=== PATIENT | female | born 1950 | race Caucasian/White ===

== ENCOUNTER 2018-07-01 08:51 | Day surgery (SDC) | payer OTHER, MEDICARE ==
[2018-06-27 12:03] VITALS: BMI 18.8
[2018-07-01] MEDS ORDERED: PROPOFOL 20 ML ONE ×2 (09:10)
[2018-07-01] MEDS ORDERED: LIDOCAINE HCL/PF 2% SDV 5ML VIAL ONE (09:10)
[2018-07-01 10:37] VITALS: PULSE 62; TEMP 97.9
[2018-07-01 10:54] VITALS: BP 124/48
== END 2018-07-01 11:10 | disposition home or self-care (01) ==
LOC: FASU-ENDO 08:51
PROVIDERS: ATTEND Internal Medicine Gastroenterology
PROC: 0D728ZZ Dilation of Middle Esophagus, Via Natural or Artificial Opening Endoscopic (ICD-10-PCS; 2018-07-01)
PROC: 0D728ZZ Dilation of Middle Esophagus, Via Natural or Artificial Opening Endoscopic (ICD-10-PCS; principal; 2018-07-01 09:43)
DX: K22.2 Esophageal obstruction (principal); K44.9 Diaphragmatic hernia without obstruction or gangrene

== ENCOUNTER 2018-08-21 07:47 | Day surgery (SDC) | payer OTHER, MEDICARE ==
[2018-08-14 11:16] VITALS: BMI 18.8
[2018-08-21] MEDS ORDERED: PROPOFOL 20 ML ONE ×2 (07:53)
[2018-08-21] MEDS ORDERED: LIDOCAINE HCL/PF 2% SDV 5ML VIAL ONE (07:54)
[2018-08-21 08:00] VITALS: TEMP 98.1
[2018-08-21 10:41] VITALS: BP 112/60; PULSE 89
== END 2018-08-21 10:40 | disposition home or self-care (01) ==
LOC: FASU-ENDO 07:47
PROVIDERS: ATTEND Internal Medicine Gastroenterology
PROC: 0D728ZZ Dilation of Middle Esophagus, Via Natural or Artificial Opening Endoscopic (ICD-10-PCS; principal; 2018-08-21 09:34)
DX: K22.2 Esophageal obstruction (principal); R13.10 Dysphagia, unspecified

== ENCOUNTER 2018-10-08 12:25 | Inpatient (IN) | payer OTHER, MEDICARE ==
--- NOTE | 2018-10-08 12:28 | PDOC ---
History of Present Illness - General Chief Complaint: Weakness Stated Complaint: WEAK Time Seen by Provider: 10/08/18 12:27 History Source: Patient, Family (Daughter present for interview), Old Records Exam Limitations: No Limitations - History of Present Illness Initial Comments: 68 y/o female presenting to ER via private auto complaining of generalized weakness. Pt initially stated it began last Sunday (02 Oct 2018) after undergoing an outpatient abdominal ultrasound. Pt then decided symptoms had perhaps been ongoing for a little while. Endorses occasional chills and decreased PO intake. Pt was diagnosed with pancreatic cancer last year. Was unable to undergo Whipple procedure after cholecystic perforation. A pacemaker was placed after pt developed a heart block while hospitalized with secondary septic infection. Recent CT scan revealed metastasis to liver. Pt is not undergoing chemo or radiation therapy. Pts daughter, present at bedside, expressed extreme frustration at the lack of understanding of plan of care for her mother. Pt was referred to an oncologist but has been unable to make an appointment. Presented to ER today with hope of better understanding what to do next. PCP: Dr. Jc Jacobs Loss Prevention Auditor: Dr. Jack Colindres Shredded Filler Cigar Maker Machine: Dr. Frederick Malloy Medical Hx: - Pancreatic cancer with metastasis to liver - Pacemaker placed for heart block Surgical Hx: - Cholecystic Tube Placement Past History - Past Medical History Allergies/Adverse Reactions: Allergies Allergy/AdvReac Type Severity Reaction Status Date / Time acetaminophen [From Tylenol] Allergy Intermediate Rash Verified 10/08/18 12:32 latex Allergy Intermediate Rash Verified 10/08/18 12:32 Home Medications: Ambulatory Orders Lactobacillus Combination No.4 [Probiotic] 1 each PO BID 05/22/18 Ranitidine HCl [Zantac] 150 mg PO BID 07/01/18 Anemia: No Asthma: No Cancer: No Cardiac Disorders: Yes (BRADYCARDIA) CVA: No COPD: No CHF: No Dementia: No Diabetes: No GI Disorders: Yes (DYSPHAGIA) Disorders: No HTN: No Hypercholesterolemia: No Liver Disease: No Seizures: No Thyroid Disease: No - Surgical History Abdominal Surgery: Yes Appendectomy: No Cardiac Surgery: No Cholecystectomy: Yes (PT HAD RUPTURED GALLBLADDER AND WAS HOSPITALIZED X 3 MOS LAST YEAR) Lung Surgery: No Neurologic Surgery: No Orthopedic Surgery: No - Suicide/Smoking/Psychosocial Hx Smoking History: Former smoker Have you smoked in the past 12 months: No Number of Cigarettes Smoked Daily: 0 If you are a former smoker, when did you quit?: 2017 Hx Alcohol Use: Yes Drug/Substance Use Hx: No Substance Use Type: Alcohol Hx Substance Use Treatment: No Review of Systems - Review of Systems Able to Perform ROS?: Yes Comments:: In addition to that documented in the HPI above, the additional ROS was obtained : Constitutional: Endorses chills. Denies fevers. Neuro: Denies headache or vision changes. ENMT: Denies sore throat or difficulty swallowing CV: Denies chest pain Resp: Denies SOB GI: Denies vomiting or diarrhea *Physical Exam - Vital Signs 10/08/18 17:08 Vital Signs - 24 hr 10/08/18 10/08/18 10/08/18 12:25 16:16 16:32 Temperature 98.4 F 100.6 F H Pulse Rate 82 Pulse Rate [ 92 H 93 H Apical] Respiratory 18 19 Rate Blood Pressure 97/70 Blood Pressure 166/89 133/58 L [Left Arm] O2 Sat by Pulse 100 100 Oximetry (%) - Physical Exam Comments: Constitutional: Thin and cachectic female in no acute distress or obvious discomfort. Appearing older than stated age. Found semi-fowlers in hospital bed. Alert and oriented x4. Answered all questions appropriately and completely. Speech was non-labored, non-pressured. HEENT: Normocephalic. No obvious external signs of trauma. Hearing grossly normal. No nasal discharge. Neck is supple, trachea is midline. Cardiovascular: Regular rate and regular rhythm. No murmur, rubs, clicks, or gallops. Peripheral pulses: Radial pulses full. Pacemaker noted in right upper chest. Respiratory: Breathing unlabored. Equal chest rise and fall. Clear to auscultation bilaterally. No stridor, no wheezing, no rhonchi. Gastrointestinal: abdomen is soft, non-tender, non-distended. Neuro: Alert and oriented. Moving all four extremities spontaneously. Skin: Warm, dry, and intact. Psych: Affect: appropriate. Mood: normal. Rectal: Hemoccult card negative. Good sphincter tone with no anal, perineal or rectal lesions. Stool brown, no melena or keith blood. Pelvic organ prolapse, suspect uterus. scrub technician chaperoned exam. ED Treatment Course - LABORATORY CBC & Chemistry Diagram: 10/08/18 13:19 10/08/18 14:00 - ADDITIONAL ORDERS Additional order review: 10/08/18 17:09 10/08/18 10/08/18 10/08/18 14:00 14:00 14:00 Sodium 128 L Potassium 2.3 L* Chloride 103 Carbon Dioxide 22 Anion Gap 3 L BUN 13 Creatinine 0.5 L Creat Clearance w eGFR > 60 Random Glucose 89 Calcium 7.2 L Phosphorus 2.6 Magnesium 1.5 L Total Bilirubin 1.5 H AST 17 ALT 8 L Alkaline Phosphatase 130 H Troponin I 0.03 Total Protein 5.4 L Albumin 1.8 L Urine Color Urine Appearance Urine pH Ur Specific [place] Urine Protein Urine Glucose (UA) Urine Ketones Urine Blood Urine Nitrite Urine Bilirubin Urine Urobilinogen Ur Leukocyte Esterase Urine RBC Urine WBC Urine Bacteria Stool Occult Blood 10/08/18 10/08/18 13:19 13:19 Sodium Potassium Chloride Carbon Dioxide Anion Gap BUN Creatinine Creat Clearance w eGFR Random Glucose Calcium Phosphorus Magnesium Total Bilirubin AST ALT Alkaline Phosphatase Troponin I Total Protein Albumin Urine Color Red Urine Appearance Cloudy Urine pH 7.0 Ur Specific [place] 1.020 Urine Protein 2+ H Urine Glucose (UA) Negative Urine Ketones Negative Urine Blood 3+ H Urine Nitrite Negative Urine Bilirubin 1+ H Urine Urobilinogen >=8.0 e.u./dl H Ur Leukocyte Esterase 2+ H Urine RBC >100 Urine WBC >100 Urine Bacteria 4+ Stool Occult Blood Negative 10/08/18 13:19 RBC 3.31 L MCV 86.6 MCHC 32.3 RDW 15.6 MPV 12.3 H Neutrophils % Metal Bench Patternmaker Lymphocytes % Metal Bench Patternmaker Monocytes % Metal Bench Patternmaker Eosinophils % Metal Bench Patternmaker Basophils % Metal Bench Patternmaker Medical Decision Making - Medical Decision Making *Reviewed vital signs, nursing notes, and prior visit documentation (if available). 68 y/o female complaining of acute on chronic generalized malaise and chills in setting of metastatic pancreatic cancer. Afebrile. Vitals remarkable for borderline hypotension. Physical exam as described above. Will obtain CBC, CMP, EKG, Troponin, UA, and urine culture to further evaluate. Ordered LR IVFB. 13:52 CMP and Troponin hemolyzed. Reordered. CBC revealed leukocytosis with 90% neutrophils. Anemic. No prior labs to compare. Hemoccult card negative. Chemistries revealed critical hypokalemia, hyponatremia, and hypomagnesemia. Will correct with both IV and PO potassium with po magnesium. Pt has already received LR bolus. UA revealed pyuria, 2+ leukocyte esterase, 4+ bacteria, and hematuria. Possible UTI though this could be contamination from prolapsed organ. Will treat with ceftriaxone. Ordered blood cultures given leukocytosis to be given prior to abx administration. Troponin not elevated. Low suspicion for ACS. CXR ordered for admission. Abdominal ultrasound dated 02 Oct 2018 noted portal vein thrombosis. Ordered lovenox injection as pt is not prescribed anticoagulants. Discussed imaging and laboratory results with pt. Answered all questions. Pt expressed verbal understanding and agreement with plan to admit for observation. 15:33 Telephone consult with CROWN AND BRIDGE TECHNICIAN Marimar Horvath. Agrees to admit pt to telemetry on observational status for Dr. Horner. No additional orders dictated. Ibuprofen ordered for fever as pt is allergic to Acetaminophen. CXR unremarkable for acute cardiopulmonary process per ED wet read. Official report pending. 10/08/18 17:15 *DC/Admit/Observation/Transfer Diagnosis at time of Disposition: Hypokalemia, Hyponatremia, Hypomagnesemia, Portal vein thrombosis UTI (urinary tract infection) Qualifiers: Urinary tract infection type: site unspecified Hematuria presence: with hematuria Qualified Code(s): N39.0 - Urinary tract infection, site not specified - Discharge Dispostion Condition at time of disposition: Stable Decision to Admit order: Yes - Referrals - Patient Instructions - Post Discharge Activity
[2018-10-08] MEDS ORDERED: LACTATED RINGERS SOLUTION 1000 ML INFUS.BAG IV ONE (13:04)
[2018-10-08 13:49] LABS: HEMATOCRIT 28.6 % (32.4-45.2); HEMOGLOBIN 9.2 GM/dl (10.7-15.3); MCHC 32.3 g/dl (32.0-36.0); MEAN CELL VOLUME 86.6 fl (80-96); MEAN PLT VOLUME 12.3 fl (7.5-11.1); PLATELET COUNT 208 K/MM3 (134-434); RBC 3.31 M/mm3 (3.60-5.2); RDW 15.6 % (11.6-15.6); WHITE BLOOD COUNT 14.7 K/mm3 (4.0-10.8)
[2018-10-08 14:05] LABS: URINE APPEARANCE Cloudy; URINE BILIRUBIN 1+ (NEGATIVE); URINE COLOR Red; URINE GLUCOSE (UA) Negative (NEGATIVE); URINE KETONE Negative (NEGATIVE); URINE LEUK ESTERASE 2+ (NEGATIVE); URINE NITRITE Negative (NEGATIVE); URINE PROTEIN 2+ (NEGATIVE); URINE UROBILINOGEN >=8.0 E.U./dl (0.2-1.0)
[2018-10-08 14:07] LABS: URINE BACTERIA 4+ /hpf (NEGATIVE); URINE RBC >100 /hpf (0-3); URINE WBC >100 (0-5)
[2018-10-08 14:23] LABS: ALBUMIN 1.8 g/dl (3.5-5.0); ALK PHOS 130 U/L (32-92); ANION GAP 3 MMOL/L (8-16); BILIRUBIN,TOTAL 1.5 mg/dl (0.2-1.0); BLOOD UREA NITROGEN 13 mg/dl (7-18); CALCIUM 7.2 mg/dl (8.4-10.2); CHLORIDE 103 mmol/L (98-107); CO2 22 mmol/L (22-28); CREATININE 0.5 mg/dl (0.6-1.3); GLUCOSE,RANDOM 89 mg/dl (74-106); SGOT/AST 17 U/L (10-42); SGPT/ALT 8 U/L (10-40); SODIUM 128 mmol/L (136-145); TOT PROT 5.4 g/dl (6.4-8.3)
[2018-10-08 14:33] LABS: POTASSIUM 2.3 mmol/L (3.5-5.1)
[2018-10-08] MEDS ORDERED: POTASSIUM CHLORIDE ORAL LIQUID 20 MEQ/15 ML PO ONE (14:36)
[2018-10-08 14:39] LABS: PLATELET ESTIMATE ADEQUATE
[2018-10-08] MEDS ORDERED: CEFTRIAXONE 1,000 MG in DEXTROSE 5%-WATER - 50 ML IVPB ONE (14:45)
[2018-10-08 14:51] LABS: MAGNESIUM 1.5 mg/dL (1.8-2.4); PHOSPHOROUS 2.6 mg/dl (2.5-4.6)
[2018-10-08] MEDS ORDERED: cefTRIAXone SODIUM 1 GM VIAL ONE (14:59)
[2018-10-08] MEDS ORDERED: MAGNESIUM OXIDE 400 MG TABLET (FP) PO ONE (15:02)
--- NOTE | 2018-10-08 15:24 | PDOC ---
Attending Attestation - Resident Resident Name: Js Murphy - ED Attending Attestation I have performed the following: I have examined & evaluated the patient, The case was reviewed & discussed with the resident, I agree w/resident's findings & plan, Exceptions are as noted - HPI HPI: 10/08/18 15:10 68 F with h/o pancreatic CA s/p biliary stenting presenting to ED with weakness x 6 days. Pt states that she has had chills but denies any other symptoms. Endorses chronic abdominal pain that is unchanged. Denies any N/V. Denies CP/ SOB. Denies any recent jaundice. Denies GEE. Denies unilateral weakness/numbness. - Physicial Exam PE: 10/08/18 15:24 "GENERAL: Awake, alert, and fully oriented, in no acute distress. HEAD: No signs of trauma EYES: PERRLA, EOMI, sclera anicteric, conjunctiva clear ENT: Auricles normal inspection, hearing grossly normal, nares patent, oropharynx clear without exudates. Moist mucosa NECK: Nontender, no stepoffs, Normal ROM, supple, no lymphadenopathy, JVD, or masses LUNGS: Breath sounds equal, clear to auscultation bilaterally. No wheezes, and no crackles HEART: Regular rate and rhythm, normal S1 and S2, no murmurs, rubs or gallops ABDOMEN: + epigastric TTP, normoactive bowel sounds. No guarding, no rebound. No masses EXTREMITIES: Normal range of motion, no edema. No clubbing or cyanosis. No cords, erythema, or tenderness NEUROLOGICAL: Cranial nerves II through XII intact. 5/5 strength and sensation in all extremities, Normal speech, normal gait, normal cerebellar function SKIN: Warm, Dry, normal turgor, no rashes or lesions noted. - Critical Care Time Total Critical Care Time: 60 Critical Care Statement: The care of this patient involved high complexity decision making to prevent further life threatening deterioration of the patient 's condition and/or to evaluate & treat vital organ system(s) failure or risk of failure. - Medical Decision Making 10/08/18 15:24 68 F with generalized weakness. Pt with no fever in ED but will evaluate for infectious process. Will also check cardiac enzymes and EKG. Notably, US from last week shows portal vein thrombosis. Pt not currently on AC. - Labs, Trop, UA, UCx - CXR - EKG - Initiate anticoagulation for PVT 10/08/18 15:31 Labs notable for UTI Pt also with hyponatremia, hypokalemia, and hypomagnesemia. Lytes repleted Pt also spiking fever in ED, now concerning for sepsis. Pt started on ceftriaxone Lovenox 50mg SQ ordered for portal vein thrombosis Pt admitted to hospitalist.
[2018-10-08] MEDS ORDERED: ENOXAPARIN NA (PORCINE) 40 MG/0.4 ML DISP.SYRIN SQ ONE (15:31)
[2018-10-08] MEDS ORDERED: ENOXAPARIN NA (PORCINE) 60 MG/0.6 ML DISP.SYRIN SQ ONE (15:34)
[2018-10-08] MEDS ORDERED: KCL 10 MEQ IVPB 10 MEQ/100 ML INFUS.BAG IVPB ONE ×2 (15:34→16:25)
[2018-10-08] MEDS ORDERED: POTASSIUM CHLORIDE ORAL LIQUID 20 MEQ/15 ML ONE (15:34)
[2018-10-08] MEDS: KCL 10 MEQ IVPB 10 MEQ/100 ML INFUS.BAG IVPB SCH ×4 (15:46→20:01)
[2018-10-08] MEDS ORDERED: IBUPROFEN 100 MG/5 ML UNIT DOSE CUPS PO ONE (16:04)
[2018-10-08] MEDS ORDERED: IBUPROFEN 100 MG/5 ML UNIT DOSE CUPS ONE (16:08)
--- NOTE | 2018-10-08 16:38 | HP ---
CHIEF COMPLAINT: Generalized weakness PCP: Dr. Jc Jacobs Big Data Engineer: Dr. Jack Colindres Roaster Helper: Dr. Frederick Malloy HISTORY OF PRESENT ILLNESS: 68 year-old female with a PMH significant for pancreatic cancer with metastases to liver, heart block s/p PPM, esophageal stricture, ruptured gallbladder s/p choecystostomy. 68 y/o female presenting to ER via private auto complaining of generalized weakness. Pt initially stated it began last Sunday (02 Oct 2018) after undergoing an outpatient abdominal ultrasound. Pt then decided symptoms had perhaps been ongoing for a little while. Endorses occasional chills and decreased PO intake. Pt was diagnosed with pancreatic cancer last year. Was unable to undergo Whipple procedure after cholecystic perforation. A pacemaker was placed after pt developed a heart block while hospitalized with secondary septic infection. Recent CT scan revealed metastasis to liver. Pt is not undergoing chemo or radiation therapy. Pts daughter expressed to ED staff her extreme frustration at the lack of understanding of plan of care for her mother. Pt was referred to an oncologist but has been unable to make an appointment. Presented to ER today with hope of better understanding what to do next. ER course was notable for: (1) T 100.6, p92, WBC 14.7k, pyuria, hematuria (2) US: portal vein thrombosis (3) lovenox 50g subq x 1 (4) LR x 1L; ceftriaxone x 1g Recent Travel: No PAST MEDICAL HISTORY: Pancreatic cancer with metastases to liver Heart block Esophageal stricture Ruptured gallbladder PAST SURGICAL HISTORY: Cholecystic tube placement Permanent pacemaker Social History: Smoking: quit 2016 Alcohol: no Drugs: no Family History: Allergies acetaminophen [From Tylenol] Allergy (Intermediate, Verified 10/08/18 12:32) Rash latex Allergy (Intermediate, Verified 10/08/18 12:32) Rash HOME MEDICATIONS: Home Medications Medication Instructions Recorded Lactobacillus Combination No.4 1 each PO BID 05/22/18 [Probiotic] Ranitidine HCl [Zantac] 150 mg PO BID 07/01/18 REVIEW OF SYSTEMS CONSTITUTIONAL: +generalized weakness, +chills, 26lb weight loss over past year Absent: fever, chills, diaphoresis, generalized weakness, malaise, loss of appetite, weight change HEENT: Absent: rhinorrhea, nasal congestion, throat pain, throat swelling, difficulty swallowing, mouth swelling, ear pain, eye pain, visual changes CARDIOVASCULAR: Absent: chest pain, syncope, palpitations, irregular heart rate, lightheadedness , peripheral edema RESPIRATORY: Absent: cough, shortness of breath, dyspnea with exertion, orthopnea, wheezing, stridor, hemoptysis GASTROINTESTINAL: +diffuse abdominal pain Absent: abdominal distension, nausea, vomiting, diarrhea, constipation, melena, hematochezia GENITOURINARY: +prolapsed uterus, occasional urinary obstruction secondary to prolapsed uterus Absent: dysuria, frequency, urgency, hesitancy, hematuria, flank pain, genital pain MUSCULOSKELETAL: Absent: myalgia, arthralgia, joint swelling, back pain, neck pain SKIN: Absent: rash, itching, pallor HEMATOLOGIC/IMMUNOLOGIC: Absent: easy bleeding, easy bruising, lymphadenopathy, frequent infections ENDOCRINE: Absent: unexplained weight gain, unexplained weight loss, heat intolerance, cold intolerance NEUROLOGIC: Absent: headache, focal weakness or paresthesias, dizziness, unsteady gait, seizure, mental status changes, bladder or bowel incontinence PSYCHIATRIC: Absent: anxiety, depression, suicidal or homicidal ideation, hallucinations. PHYSICAL EXAMINATION Vital Signs - 24 hr 10/08/18 10/08/18 10/08/18 12:25 16:16 16:32 Temperature 98.4 F 100.6 F H Pulse Rate 82 Pulse Rate [ 92 H 93 H Apical] Respiratory 18 19 Rate Blood Pressure 97/70 Blood Pressure 166/89 133/58 L [Left Arm] O2 Sat by Pulse 100 100 Oximetry (%) GENERAL: Awake, alert, and fully oriented, in no acute distress. Thin, frail, cachectic. Temporal wasting. Absence of body fat. Protruding clavicles. HEAD: Normal with no signs of trauma. EYES: Pupils equal, round and reactive to light, extraocular movements intact, sclera anicteric, conjunctiva clear. No lid lag. NECK: Normal range of motion, supple without lymphadenopathy, JVD, or masses. LUNGS: Breath sounds equal, clear to auscultation bilaterally. No wheezes, and no crackles. No accessory muscle use. HEART: Regular rate and rhythm, S1 and S2 without murmur, rub or gallop. ABDOMEN: Soft, mild diffuse tenderness; two protrusions RMQ which are soft, ot tender, and make soft liquid sound GI: Pelvic organ prolpase, suspect uterus MUSCULOSKELETAL: Normal range of motion at all joints. No bony deformities or tenderness. No CVA tenderness. UPPER EXTREMITIES: 2+ pulses, warm, well-perfused. No cyanosis. No clubbing. No peripheral edema. LOWER EXTREMITIES: 2+ pulses, warm, well-perfused. No calf tenderness. No peripheral edema. NEUROLOGICAL: Cranial nerves II-XII intact. Normal speech. Self-positions in bed. Laboratory Results - last 24 hr 10/08/18 10/08/18 10/08/18 13:19 13:19 13:19 WBC 14.7 H RBC 3.31 L Hgb 9.2 L Hct 28.6 L MCV 86.6 MCH 28.0 MCHC 32.3 RDW 15.6 Plt Count 208 MPV 12.3 H Absolute Neuts (auto) 12.1 Neutrophils % Disaster Director Neutrophils % (Manual) 90.0 H Lymphocytes % Disaster Director Lymphocytes % (Manual) 7.0 L Monocytes % Disaster Director Monocytes % (Manual) 3 L Eosinophils % Disaster Director Basophils % Disaster Director Platelet Estimate Adequate Sodium Potassium Chloride Carbon Dioxide Anion Gap BUN Creatinine Creat Clearance w eGFR Random Glucose Calcium Phosphorus Magnesium Total Bilirubin AST ALT Alkaline Phosphatase Troponin I Total Protein Albumin Urine Color Red Urine Appearance Cloudy Urine pH 7.0 Ur Specific [place] 1.020 Urine Protein 2+ H Urine Glucose (UA) Negative Urine Ketones Negative Urine Blood 3+ H Urine Nitrite Negative Urine Bilirubin 1+ H Urine Urobilinogen >=8.0 e.u./dl H Ur Leukocyte Esterase 2+ H Urine RBC >100 Urine WBC >100 Urine Bacteria 4+ Stool Occult Blood Negative 10/08/18 10/08/18 10/08/18 14:00 14:00 14:00 WBC RBC Hgb Hct MCV MCH MCHC RDW Plt Count MPV Absolute Neuts (auto) Neutrophils % Neutrophils % (Manual) Lymphocytes % Lymphocytes % (Manual) Monocytes % Monocytes % (Manual) Eosinophils % Basophils % Platelet Estimate Sodium 128 L Potassium 2.3 L* Chloride 103 Carbon Dioxide 22 Anion Gap 3 L BUN 13 Creatinine 0.5 L Creat Clearance w eGFR > 60 Random Glucose 89 Calcium 7.2 L Phosphorus 2.6 Magnesium 1.5 L Total Bilirubin 1.5 H AST 17 ALT 8 L Alkaline Phosphatase 130 H Troponin I 0.03 Total Protein 5.4 L Albumin 1.8 L Urine Color Urine Appearance Urine pH Ur Specific [place] Urine Protein Urine Glucose (UA) Urine Ketones Urine Blood Urine Nitrite Urine Bilirubin Urine Urobilinogen Ur Leukocyte Esterase Urine RBC Urine WBC Urine Bacteria Stool Occult Blood ASSESSMENT/PLAN Pancreatic cancer with metastases --09/12 CT: multiple hepatic masses consistent with metastatic disease; peripancreatic fluid and dilitation of pancreatic duct --available medical record is limited, no pathology reports in EMR; will need to get records from PCP and Dr. Colindres --oncology consult requested Hyperbilirubinemia --total bili 1.5; hepatic panel in am Hypoalbuminemia --corrected Ca 8.6 Anemia --occult stool negative --hematuria present --trend h/h --type and screen Sepsis secondary to UTI --T 100.6, p92, WBC 14.7k, pyuria, hematuria --lactic acid pending --give NS x 1L over 2 hours --cultures collected and sent --start Zosyn --ID consult Main portal vein thrombus --seen on 10/02 --lovenox 50mg x 1 given in ED --will continue lovenox 40mg q12 based on standing scale weight Ruptured gallbladder --s/p cholecystomy --s/p biliary stenting Mild COPD --not on home meds --duonebs PRN Esophageal stricture --s/p dilation 07/01/18, 08/21/18 --09/10 CTAP shows marked narrowing --Dr. Colindres follows as outpatient; consult requested Heart block --s/p PPM --find out when PPM last interrogated --not on home cardiac meds --telemetry monitoring for now Hyponatremia --Na 128 on admission, repeat 130 Hypokalemia --K 2.3 on admission, repleted; repeat 3.8 Hypomagnesemia --Mg 1.5 on admission, repleted with PO; repeat 1.4 Severe malnutrition FEN Fluids: PO intake adequate Electrolytes: replete as indicated Nutrition: NPO DVT prophylaxis: on full dose lovenox Dispo: continues to require inpatient care. Full code. Visit type - Emergency Visit Emergency Visit: Yes ED Registration Date: 10/08/18 Care time: The patient presented to the Emergency Department on the above date and was hospitalized for further evaluation of their emergent condition. - New Patient This patient is new to me today: Yes Date on this admission: 10/09/18 - Critical Care Critical Care patient: Yes Total Critical Care Time (in minutes): 90 Critical Care Statement: The care of this patient involved high complexity decision making to prevent further life threatening deterioration of the patient 's condition and/or to evaluate & treat vital organ system(s) failure or risk of failure.
[2018-10-08] MEDS ORDERED: SODIUM CHLORIDE 1,000 ML IV STA (17:36)
[2018-10-08 18:09] LABS: ANION GAP 6 MMOL/L (8-16); BLOOD UREA NITROGEN 12 mg/dl (7-18); CHLORIDE 104 mmol/L (98-107); CO2 20 mmol/L (22-28); CREATININE < 0.6 mg/dl (0.6-1.3); GLUCOSE,RANDOM 158 mg/dl (74-106); MAGNESIUM 1.4 mg/dL (1.8-2.4); POTASSIUM 3.8 mmol/L (3.5-5.1); SODIUM 130 mmol/L (136-145)
[2018-10-08 18:12] LABS: CALCIUM 6.8 mg/dl (8.4-10.2)
[2018-10-08] MEDS ORDERED: PIPERACILLIN/TAZOB 2.25 GM 2.25 GM in DEXTROSE 5%-WATER - 50 ML IVPB SCH (18:30)
[2018-10-08 18:38] VITALS: BMI 16.8
[2018-10-08] MEDS ORDERED: PIPERACILLIN/TAZOBACTAM 2.25 GM VIAL IVPB ONE (19:54)
[2018-10-08] MEDS ORDERED: DEXTROSE 5%-WATER - 50 ML IVPB ONE (19:55)
--- NOTE | 2018-10-08 20:25 | PN ---
Progress Note (short form) - Note Progress Note: Patient well known to me from recent GI outpatient workup. Patient with history of pancreatic cancer - diagnosis made 1 year ago on biopsy (according to her son ). The patient and her sister have not been forthcoming with the actual history/ timeline and I have only been able to put together the story piecemeal. The daughter who has been apparently aware of the diagnosis has not come to any of the office visits or endoscopy procedures; unsure of her involvement although she recently has been helping to make some appointments. I personally have spoken with her on the phone on 2 occasions and got the additional information about the original plan for Whipple surgery by Steve Willard, the GB rupture, the biliary stent (placed at [facility]) and stormy postop course after the GB rupture. I also explained to her the need to get Oncology involved as Mrs Salazar likely has metastatic pancreatic cancer. She was planning on arranging Oncology consultation through the head of conservation (Dr. Jc Jcaobs). Recent CT and sonograms c/w liver mets and portal vein involvement and serum CA- 19-9 level markedly elevated. Has esophageal stricture, refractory to endoscopic dilatation ?extrinsic compression? Dr. Partida (IR) aware of patient and was to review sonogram re; possible liver biopsy - doubt this would be of additional benefit at this time. Current plans should aim at supportive care, correction of electrolyte imbalance and PO nutrition as tolerated Agree with obtaining Oncology consult and there should be a family meeting so that everyone involved can be aware of the diagnosis, prognosis and options ( and avoid any confusion among the family members). No endoscopic intervention recommended at this time. Will follow as needed
[2018-10-08] MEDS: PIPERACILLIN/TAZOB 2.25 GM 2.25 GM in DEXTROSE 5%-WATER - 50 ML IVPB SCH (20:49)
[2018-10-08] MEDS: RANITIDINE HCL 150 MG TABLET (FP) PO SCH (21:16)
[2018-10-08] MEDS: DOCUSATE SODIUM 100 MG CAPSULE (FP) PO SCH (21:16)
[2018-10-08 23:24] LABS: ANION GAP 7 MMOL/L (8-16); BLOOD UREA NITROGEN 10 mg/dL (7-18); CHLORIDE 109 mmol/L (98-107); CO2 23 mmol/L (21-32); CREATININE 0.3 mg/dL (0.55-1.3); GLUCOSE,RANDOM 116 mg/dL (74-106); POTASSIUM 3.7 mmol/L (3.5-5.1); SODIUM 138 mmol/L (136-145)
[2018-10-08 23:29] LABS: CALCIUM 6.6 mg/dL (8.5-10.1)
[2018-10-09] MEDS: DEXTROSE 5%-0.45% SALINE 1,000 ML IV SCH (00:17)
[2018-10-09] MEDS ORDERED: PIPERACILLIN/TAZOBACTAM 2.25 GM VIAL IVPB ONE (00:51)
[2018-10-09] MEDS ORDERED: DEXTROSE 5%-WATER - 50 ML IVPB ONE (00:52)
[2018-10-09] MEDS: PIPERACILLIN/TAZOB 2.25 GM 2.25 GM in DEXTROSE 5%-WATER - 50 ML IVPB SCH (03:29)
[2018-10-09] MEDS: ENOXAPARIN NA (PORCINE) 40 MG/0.4 ML DISP.SYRIN SQ SCH ×2 (04:24→21:50)
[2018-10-09 08:50] LABS: ANION GAP 6 MMOL/L (8-16); BLOOD UREA NITROGEN 8 mg/dl (7-18); CHLORIDE 104 mmol/L (98-107); CO2 21 mmol/L (22-28); CREATININE 0.4 mg/dl (0.6-1.3); GLUCOSE,RANDOM 98 mg/dl (74-106); HEMOGLOBIN 7.3 GM/dl (10.7-15.3); MAGNESIUM 1.5 mg/dL (1.8-2.4); PHOSPHOROUS 2.2 mg/dl (2.5-4.6); POTASSIUM 3.7 mmol/L (3.5-5.1); SODIUM 131 mmol/L (136-145)
[2018-10-09 08:51] LABS: ACTIVATED PTT 28.5 SECONDS (25.2-36.5)
[2018-10-09 08:55] LABS: INR 1.2 (0.82-1.09); PROTHROMBIN TIME (PATIENT) 13.4 SEC (10.2-13.0)
[2018-10-09 08:56] LABS: CALCIUM 6.8 mg/dl (8.4-10.2)
[2018-10-09 09:01] LABS: BASO % 0.2 % (0-2.0); EOS % 0.5 % (0-4.5); HEMATOCRIT 22.4 % (32.4-45.2); LYMPH % 15.1 % (8-40); MCHC 32.4 g/dl (32.0-36.0); MEAN CELL VOLUME 86.4 fl (80-96); MEAN PLT VOLUME 10.2 fl (7.5-11.1); NEUT % 81.2 % (42.8-82.8); PLATELET COUNT 130 K/MM3 (134-434); RBC 2.59 M/mm3 (3.60-5.2); RDW 15.7 % (11.6-15.6); WHITE BLOOD COUNT 8.6 K/mm3 (4.0-10.8)
[2018-10-09] MEDS ORDERED: SODIUM CHLORIDE 500 ML IV STA (09:24)
--- NOTE | 2018-10-09 09:46 | PN ---
Progress Note (short form) - Note Progress Note: ID Consult dictated Gram Negative bacteremia/ septic shock ? biliary tract source ? Metastatic pancreatic ca Portal vein thrombosis Lactic acidosis Pending sepsis workup, empiric meropenem/ flagyl
[2018-10-09] MEDS ORDERED: MAGNESIUM SULF 50% (8.12 MEQ/2 ML-1 GM VIAL) IVPB ONE (09:48)
[2018-10-09] MEDS ORDERED: CEFTRIAXONE 1 G/50 ML PREMIX 50 ML IVPB SCH (10:00)
[2018-10-09] MEDS: POLYETHYLENE GLYCOL 3350 119 GM BTL PO SCH (10:15)
[2018-10-09] MEDS: RANITIDINE HCL 150 MG TABLET (FP) PO SCH ×2 (10:15→21:50)
[2018-10-09] MEDS: MEROPENEM 1 GM in DEXTROSE 5%-WATER 100 ML IVPB SCH ×2 (10:16→17:29)
[2018-10-09] MEDS ORDERED: MAGNESIUM SULFATE IN WATER 2 GM/50 ML IVPB IVPB ONE (10:30)
--- NOTE | 2018-10-09 10:45 | EKG ---
Test Reason : Blood Pressure : / mmHG Vent. Rate : 076 BPM Atrial Rate : 076 BPM P-R Int : 130 ms QRS Dur : 090 ms QT Int : 420 ms P-R-T Axes : 061 060 071 degrees QTc Int : 472 ms NORMAL SINUS RHYTHM NORMAL ECG NO PREVIOUS ECGS AVAILABLE Confirmed by EHSAN SANTA, JESSIKA ([id number]) on 10/09/2018 10:44:32 AM Referred By: Shauna Horner Confirmed By:JESSIKA MOSER MD
--- NOTE | 2018-10-09 11:14 | PN ---
Physical Exam: SUBJECTIVE: Patient seen and examined at bedside. OBJECTIVE: Vital Signs Period Temp Pulse Resp BP Sys/Hartmann Pulse Ox Last 24 Hr 97.6 F-100.6 F 65-101 14-19 89-166/42-89 98-100 GENERAL: Awake, alert, and fully oriented, in no acute distress. Thin, frail, cachectic. Temporal wasting. Absence of body fat. Protruding clavicles. HEAD: Normal with no signs of trauma. EYES: Pupils equal, round and reactive to light, extraocular movements intact, sclera anicteric, conjunctiva clear. No lid lag. NECK: Normal range of motion, supple without lymphadenopathy, JVD, or masses. LUNGS: Breath sounds equal, clear to auscultation bilaterally. No wheezes, and no crackles. No accessory muscle use. HEART: Regular rate and rhythm, S1 and S2 without murmur, rub or gallop. ABDOMEN: Soft, mild diffuse tenderness; two protrusions RMQ which are soft, not tender, and make soft liquid sound GI: prolapsed uterus; surface tissue intact, no lesions, excoriations MUSCULOSKELETAL: Normal range of motion at all joints. No bony deformities or tenderness. No CVA tenderness. UPPER EXTREMITIES: 2+ pulses, warm, well-perfused. No cyanosis. No clubbing. No peripheral edema. LOWER EXTREMITIES: 2+ pulses, warm, well-perfused. No calf tenderness. No peripheral edema. NEUROLOGICAL: Cranial nerves II-XII intact. Normal speech. Self-positions in bed. Laboratory Results - last 24 hr 10/08/18 10/08/18 10/08/18 13:19 13:19 13:19 WBC 14.7 H RBC 3.31 L Hgb 9.2 L Hct 28.6 L MCV 86.6 MCH 28.0 MCHC 32.3 RDW 15.6 Plt Count 208 MPV 12.3 H Absolute Neuts (auto) 12.1 Neutrophils % Extrusion Utility Worker Neutrophils % (Manual) 90.0 H Lymphocytes % Extrusion Utility Worker Lymphocytes % (Manual) 7.0 L Monocytes % Extrusion Utility Worker Monocytes % (Manual) 3 L Eosinophils % Extrusion Utility Worker Basophils % Extrusion Utility Worker Platelet Estimate Adequate PT with INR INR PTT (Actin FS) Sodium Potassium Chloride Carbon Dioxide Anion Gap BUN Creatinine Creat Clearance w eGFR Random Glucose Lactic Acid Calcium Phosphorus Magnesium Total Bilirubin AST ALT Alkaline Phosphatase Troponin I Total Protein Albumin Urine Color Red Urine Appearance Cloudy Urine pH 7.0 Ur Specific [place] 1.020 Urine Protein 2+ H Urine Glucose (UA) Negative Urine Ketones Negative Urine Blood 3+ H Urine Nitrite Negative Urine Bilirubin 1+ H Urine Urobilinogen >=8.0 e.u./dl H Ur Leukocyte Esterase 2+ H Urine RBC >100 Urine WBC >100 Urine Bacteria 4+ Stool Occult Blood Negative Blood Type Antibody Screen 10/08/18 10/08/18 10/08/18 14:00 14:00 14:00 WBC RBC Hgb Hct MCV MCH MCHC RDW Plt Count MPV Absolute Neuts (auto) Neutrophils % Neutrophils % (Manual) Lymphocytes % Lymphocytes % (Manual) Monocytes % Monocytes % (Manual) Eosinophils % Basophils % Platelet Estimate PT with INR INR PTT (Actin FS) Sodium 128 L Potassium 2.3 L* Chloride 103 Carbon Dioxide 22 Anion Gap 3 L BUN 13 Creatinine 0.5 L Creat Clearance w eGFR > 60 Random Glucose 89 Lactic Acid Calcium 7.2 L Phosphorus 2.6 Magnesium 1.5 L Total Bilirubin 1.5 H AST 17 ALT 8 L Alkaline Phosphatase 130 H Troponin I 0.03 Total Protein 5.4 L Albumin 1.8 L Urine Color Urine Appearance Urine pH Ur Specific [place] Urine Protein Urine Glucose (UA) Urine Ketones Urine Blood Urine Nitrite Urine Bilirubin Urine Urobilinogen Ur Leukocyte Esterase Urine RBC Urine WBC Urine Bacteria Stool Occult Blood Blood Type Antibody Screen 10/08/18 10/08/18 10/08/18 17:45 17:45 22:00 WBC RBC Hgb Hct MCV MCH MCHC RDW Plt Count MPV Absolute Neuts (auto) Neutrophils % Neutrophils % (Manual) Lymphocytes % Lymphocytes % (Manual) Monocytes % Monocytes % (Manual) Eosinophils % Basophils % Platelet Estimate PT with INR INR PTT (Actin FS) Sodium 130 L 138 Potassium 3.8 D 3.7 Chloride 104 109 H Carbon Dioxide 20 L 23 Anion Gap 6 L 7 L BUN 12 10 Creatinine < 0.6 L 0.3 L Creat Clearance w eGFR > 60 > 60 Random Glucose 158 H D 116 H Lactic Acid 3.3 H* Calcium 6.8 L* 6.6 L* Phosphorus Magnesium 1.4 L Total Bilirubin AST ALT Alkaline Phosphatase Troponin I Total Protein Albumin Urine Color Urine Appearance Urine pH Ur Specific [place] Urine Protein Urine Glucose (UA) Urine Ketones Urine Blood Urine Nitrite Urine Bilirubin Urine Urobilinogen Ur Leukocyte Esterase Urine RBC Urine WBC Urine Bacteria Stool Occult Blood Blood Type Antibody Screen 10/08/18 10/09/18 10/09/18 22:00 07:40 08:05 WBC 8.6 RBC 2.59 L Hgb 7.3 L Hct 22.4 L D MCV 86.4 MCH 28.0 MCHC 32.4 RDW 15.7 H Plt Count 130 L MPV 10.2 Absolute Neuts (auto) 7.0 Neutrophils % 81.2 Neutrophils % (Manual) Lymphocytes % 15.1 Lymphocytes % (Manual) Monocytes % 3.0 L Monocytes % (Manual) Eosinophils % 0.5 Basophils % 0.2 Platelet Estimate PT with INR INR PTT (Actin FS) Sodium Potassium Chloride Carbon Dioxide Anion Gap BUN Creatinine Creat Clearance w eGFR Random Glucose Lactic Acid 1.2 Calcium Phosphorus Magnesium Total Bilirubin AST ALT Alkaline Phosphatase Troponin I Total Protein Albumin Urine Color Urine Appearance Urine pH Ur Specific [place] Urine Protein Urine Glucose (UA) Urine Ketones Urine Blood Urine Nitrite Urine Bilirubin Urine Urobilinogen Ur Leukocyte Esterase Urine RBC Urine WBC Urine Bacteria Stool Occult Blood Blood Type A POSITIVE Antibody Screen Negative 10/09/18 10/09/18 08:05 08:05 WBC RBC Hgb Hct MCV MCH MCHC RDW Plt Count MPV Absolute Neuts (auto) Neutrophils % Neutrophils % (Manual) Lymphocytes % Lymphocytes % (Manual) Monocytes % Monocytes % (Manual) Eosinophils % Basophils % Platelet Estimate PT with INR 13.4 H INR 1.20 PTT (Actin FS) 28.5 Sodium 131 L Potassium 3.7 Chloride 104 Carbon Dioxide 21 L Anion Gap 6 L BUN 8 Creatinine 0.4 L Creat Clearance w eGFR > 60 Random Glucose 98 D Lactic Acid Calcium 6.8 L* Phosphorus 2.2 L Magnesium 1.5 L Total Bilirubin AST ALT Alkaline Phosphatase Troponin I Total Protein Albumin Urine Color Urine Appearance Urine pH Ur Specific [place] Urine Protein Urine Glucose (UA) Urine Ketones Urine Blood Urine Nitrite Urine Bilirubin Urine Urobilinogen Ur Leukocyte Esterase Urine RBC Urine WBC Urine Bacteria Stool Occult Blood Blood Type Antibody Screen Active Medications Generic Name Dose Route Start Last Admin Trade Name Freq PRN Reason Stop Dose Admin Docusate Sodium 300 mg 10/08/18 22:00 10/08/18 21:16 Colace - PO 300 mg HS HAILEE Administration Enoxaparin Sodium 40 mg 10/09/18 04:00 10/09/18 04:24 Lovenox - SQ 40 mg BID HAILEE Administration Dextrose/Sodium Chloride 1,000 mls @ 75 mls/hr 10/09/18 00:15 10/09/18 00:17 D5-1/2ns - IV 75 mls/hr ASDIR HAILEE Administration Meropenem 1 gm/ Dextrose 100 mls @ 200 mls/hr 10/09/18 10:00 10/09/18 10:16 IVPB 200 mls/hr Q8H-IV HAILEE Administration Metronidazole 500 mg in 100 mls @ 100 mls/hr 10/09/18 10:00 10/09/18 10:16 Flagyl 500mg Premixed Ivpb - IVPB 100 mls/hr Q8H-IV HAILEE Administration Magnesium Sulfate 2 gm in 50 mls @ 50 mls/hr 10/09/18 10:30 10/09/18 10:13 Magnesium Sulf 2 G/50 Ml Bag IVPB 10/09/18 11:29 50 mls/hr ONCE ONE Administration Polyethylene Glycol 17 gm 10/09/18 10:00 10/09/18 10:15 Miralax (For Daily Use) - PO 17 gm DAILY HAILEE Administration Ranitidine HCl 150 mg 10/08/18 22:00 10/09/18 10:15 Zantac - PO 150 mg BID HAILEE Administration ASSESSMENT/PLAN 68 year-old female with a PMH significant for complete heart block s/p PPM, COPD , esophageal stricture, ruptured gallbladder s/p cholecystosomy, metatstatic disease, and prolapsed uterus. Admitted for sepsis secondary to UTI. Now bacteremic. Severe sepsis secondary to UTI --T 100.6, p92, WBC 14.7k, pyuria, hematuria --lactic acid 3.3 --give NS x 1L over 2 hours --cultures collected and sent --meropenem (day #1), metronidazole (day #1) --ID following Pancreatic mass --CORRECTION: Diagnosis of pancreatic cancer made in previous notes not accurate. Patient had negative biopsy at [facility] 11/20/17, copy in chart Metastatic disease --09/12/18 CT: multiple hepatic masses consistent with metastatic disease; peripancreatic fluid and dilitation of pancreatic duct --uncertain primary source --oncology consult pending Main portal vein thrombus --seen on 10/02 US --lovenox 50mg x 1 given in ED --will continue lovenox 40mg q12 based on standing scale weight Biliary obstruction s/p CBD stenting Ruptured gallbladder --s/p cholecystostomy --s/p biliary stenting Esophageal stricture --s/p dilation 07/01/18, 08/21/18 --09/10 CTAP shows marked narrowing --Dr. Colindres follows as outpatient; consult requested Hyperbilirubinemia --total bili 1.5; repeat in am Hypoalbuminemia --corrected Ca 8.6 Anemia --Hgb 7.3 --occult stool negative --hematuria present --trend h/h --type and screen Mild COPD --not on home meds --duonebs PRN Prolapsed uterus, chronic --since 1982 --has to manipulate the uterus in order to urinate --patient did not tolerate pessary Heart block --s/p PPM --find out when PPM last interrogated --not on home cardiac meds --telemetry monitoring for now Diastolic heart failure --11/12/17 Echo ([facility]): LV systolic normal, EF 60-65%; LV impaired relaxation; RV normal; no significant valvular diease; mild pHTN Hyponatremia --Na 128 on admission, repeat 130 Hypokalemia --K 2.3 on admission, repleted; repeat 3.8 Hypomagnesemia --Mg 1.5 on admission, repleted with PO; repeat 1.4 Severe malnutrition FEN Fluids: PO intake adequate Electrolytes: replete as indicated Nutrition: NPO DVT prophylaxis: on full dose lovenox Dispo: continues to require inpatient care. Full code. Visit type - Emergency Visit Emergency Visit: Yes ED Registration Date: 10/08/18 Care time: The patient presented to the Emergency Department on the above date and was hospitalized for further evaluation of their emergent condition. - New Patient This patient is new to me today: No - Critical Care Critical Care patient: Yes Total Critical Care Time (in minutes): 60 Critical Care Statement: The care of this patient involved high complexity decision making to prevent further life threatening deterioration of the patient 's condition and/or to evaluate & treat vital organ system(s) failure or risk of failure.
--- NOTE | 2018-10-09 11:29 | CONS ---
DATE OF CONSULTATION: DATE OF DICTATION: 10/09/2018 HISTORY OF PRESENT ILLNESS: This is a 68-year-old female evaluated with known history of metastatic pancreatic cancer evaluated for positive blood cultures. The patient was admitted to the hospital on October 08, 2018, with a several day history of generalized weakness and chills. She presented to the emergency room where she was noted to be weak-appearing. Her course was complicated by a low-grade fever and elevated white blood cell count. Blood cultures were obtained on admission and are now positive for gram negative rods. Patient complains of generalized weakness and chills as well as anorexia. She denies any abdominal pain. No other focal complaints. She denies any nausea, vomiting, diarrhea, dysuria, or hematuria. History was obtained from the chart as well as Dr. Colindres, who provided additional information. She apparently was diagnosed with pancreatic cancer approximately 1 year ago. She was followed at [facility]. She was hospitalized at [facility] after developing a perforated gallbladder. She reports being in the hospital for 3 months. Her hospital course at that time was complicated by heart block requiring permanent pacemaker. She was tentatively scheduled to have a Whipple procedure before the gallbladder perforation. In the interim, it appears a gallbladder stent was placed. She was also found to have portal vein thrombosis and was treated for sepsis in the past. Most recently, she experienced esophageal stricture for which dilatation procedures were performed. She continued to be symptomatic, suggesting possible extrinsic compression of the esophagus. As an outpatient, a sonogram of the abdomen was performed and revealed multiple hepatic metastases as well as the thrombus within the main portal vein. PAST MEDICAL HISTORY: As above. ALLERGIES: To TYLENOL and LATEX. SOCIAL HISTORY: She lives at home with family members. A former smoker, occasional EtOH. SYSTEMS REVIEW: Neurologic: No loss of consciousness, seizure activity, or focal weakness. Cardiac: Negative for chest pain or palpitations. Respiratory: Negative for cough or sputum production. Gastrointestinal: As per HPI. Genitourinary: Negative for urinary tract infection. LABORATORY DATA: White count 14.7, 92 neutrophils, 7 lymphocytes, 3 monocytes, hematocrit 28.6, platelet count 208. BUN 8, creatinine 0.4. Urinalysis greater than 100 white cells. Lactic acid 3.3. Blood cultures growing Gram negative rods in anaerobic bottles. Urine culture pending. Chest x-ray slight increase in markings bilaterally. PHYSICAL EXAMINATION: General: She is awake and alert. She is cachectic. She is no acute distress. Vital signs: Temperature 100.6, blood pressure 97/49, pulse 65 and regular, respirations 18 per minute. HEENT: Sclerae anicteric. Heart: Heart sounds S1, S2. Lungs: Clear. Abdomen: Soft. No tenderness elicited. No mass, rebound, or rigidity. No suprapubic or flank tenderness. Extremities: Negative for edema. IMPRESSION: 1. Gram negative bacteremia/septic shock. 2. Metastatic pancreatic cancer. 3. Portal vein thrombosis. 4. Lactic acidosis. PLAN: Source of Gram negative bacteremia likely biliary tract versus urinary tract pending cultures, empiric antibiotic coverage with meropenem and Flagyl, GI and oncology evaluations, hemodynamic support. Will follow. Thank you for the kind referral. MARÍA SPRING M.D. [id number]
[2018-10-09 13:04] LABS: LIPASE 642 U/L (73-393)
[2018-10-09] MEDS ORDERED: PT OWN MED DRAWER 7, Y5N ONE (17:18)
[2018-10-09] MEDS ORDERED: traMADol HCL 50 MG TABLET PO PRN (19:10)
[2018-10-09] MEDS: PANTOPRAZOLE 40 MG TABLET (FP) PO SCH (19:36)
[2018-10-09] MEDS: DOCUSATE SODIUM 100 MG CAPSULE (FP) PO SCH (21:50)
[2018-10-10] MEDS ORDERED: PT OWN MED DRAWER 7, Y5N ONE ×3 (00:40→17:05)
[2018-10-10] MEDS: DEXTROSE 5%-0.45% SALINE 1,000 ML IV SCH (01:02)
[2018-10-10] MEDS: MEROPENEM 1 GM in DEXTROSE 5%-WATER 100 ML IVPB SCH ×3 (01:02→17:23)
[2018-10-10 08:34] LABS: EOS % 0.9 % (0-4.5); HEMATOCRIT 22.8 % (32.4-45.2); HEMOGLOBIN 7.4 GM/dl (10.7-15.3); LYMPH % 14.7 % (8-40); MCH 28.2 pg (25.7-33.7); MCHC 32.7 g/dl (32.0-36.0); MEAN CELL VOLUME 86.3 fl (80-96); MEAN PLT VOLUME 11.7 fl (7.5-11.1); MONO % 5.2 % (3.8-10.2); NEUT % 79.2 % (42.8-82.8); PLATELET COUNT 188 K/MM3 (134-434); RBC 2.64 M/mm3 (3.60-5.2); RDW 15.5 % (11.6-15.6); WHITE BLOOD COUNT 8.2 K/mm3 (4.0-10.8)
[2018-10-10 08:38] LABS: ALBUMIN 1.3 g/dl (3.5-5.0); ALK PHOS 105 U/L (32-92); ANION GAP 6 MMOL/L (8-16); BILIRUBIN,TOTAL 0.8 mg/dl (0.2-1.0); BLOOD UREA NITROGEN 4 mg/dl (7-18); CHLORIDE 102 mmol/L (98-107); CO2 23 mmol/L (22-28); CREATININE 0.4 mg/dl (0.6-1.3); GLUCOSE,RANDOM 104 mg/dl (74-106); MAGNESIUM 1.8 mg/dL (1.8-2.4); POTASSIUM 3.2 mmol/L (3.5-5.1); SGOT/AST 14 U/L (10-42); SGPT/ALT 7 U/L (10-40); SODIUM 131 mmol/L (136-145); TOT PROT 4.5 g/dl (6.4-8.3)
[2018-10-10 08:48] LABS: CALCIUM 6.7 mg/dl (8.4-10.2)
[2018-10-10] MEDS: ENOXAPARIN NA (PORCINE) 40 MG/0.4 ML DISP.SYRIN SQ SCH ×2 (09:44→21:53)
[2018-10-10] MEDS: PANTOPRAZOLE 40 MG TABLET (FP) PO SCH (09:45)
[2018-10-10] MEDS: RANITIDINE HCL 150 MG TABLET (FP) PO SCH ×2 (09:45→21:54)
[2018-10-10] MEDS: POLYETHYLENE GLYCOL 3350 119 GM BTL PO SCH (09:45)
[2018-10-10] MEDS: POTASSIUM CHLORIDE TABS 20 MEQ TABLET.ER (FP) PO SCH ×2 (12:48→17:23)
--- NOTE | 2018-10-10 14:37 | PN ---
Physical Exam: SUBJECTIVE: Patient seen and examined at bedside. OBJECTIVE: Vital Signs Period Temp Pulse Resp BP Sys/Hartmann Pulse Ox Last 24 Hr 98.1 F-99.8 F 66-85 14-19 98-133/40-62 98-100 GENERAL: Awake, alert, and fully oriented, in no acute distress. Thin, frail, cachectic. Temporal wasting. Absence of body fat. Protruding clavicles. LUNGS: Breath sounds equal, clear to auscultation bilaterally. No wheezes, and no crackles. No accessory muscle use. HEART: Regular rate and rhythm, S1 and S2 without murmur, rub or gallop. ABDOMEN: Soft, mild diffuse tenderness; two protrusions RMQ which are soft, not tender GI: prolapsed uterus; surface tissue intact, no lesions, excoriations MUSCULOSKELETAL: Normal range of motion at all joints. No bony deformities or tenderness. No CVA tenderness. UPPER EXTREMITIES: 2+ pulses, warm, well-perfused. No cyanosis. No clubbing. No peripheral edema. LOWER EXTREMITIES: 2+ pulses, warm, well-perfused. No calf tenderness. No peripheral edema. NEUROLOGICAL: Cranial nerves II-XII intact. Normal speech. Steady gait. Laboratory Results - last 24 hr 10/10/18 10/10/18 07:58 07:58 WBC 8.2 RBC 2.64 L Hgb 7.4 L Hct 22.8 L MCV 86.3 MCH 28.2 MCHC 32.7 RDW 15.5 Plt Count 188 MPV 11.7 H Absolute Neuts (auto) 6.5 Neutrophils % 79.2 Lymphocytes % 14.7 Monocytes % 5.2 Eosinophils % 0.9 Basophils % 0.0 Sodium 131 L Potassium 3.2 L Chloride 102 Carbon Dioxide 23 Anion Gap 6 L BUN 4 L Creatinine 0.4 L Creat Clearance w eGFR > 60 Random Glucose 104 Calcium 6.7 L* Magnesium 1.8 Total Bilirubin 0.8 AST 14 ALT 7 L Alkaline Phosphatase 105 H D Total Protein 4.5 L Albumin 1.3 L Active Medications Generic Name Dose Route Start Last Admin Trade Name Freq PRN Reason Stop Dose Admin Docusate Sodium 300 mg 10/08/18 22:00 10/09/18 21:50 Colace - PO 300 mg HS HAILEE Administration Enoxaparin Sodium 40 mg 10/09/18 04:00 11/15/18 09:44 Lovenox - SQ 40 mg BID HAILEE Administration Dextrose/Sodium Chloride 1,000 mls @ 75 mls/hr 10/09/18 00:15 10/10/18 01:02 D5-1/2ns - IV 75 mls/hr ASDIR HAILEE Administration Meropenem 1 gm/ Dextrose 100 mls @ 200 mls/hr 10/09/18 10:00 10/10/18 09:44 IVPB 200 mls/hr Q8H-IV HAILEE Administration Metronidazole 500 mg in 100 mls @ 100 mls/hr 10/09/18 10:00 10/10/18 09:44 Flagyl 500mg Premixed Ivpb - IVPB 100 mls/hr Q8H-IV HAILEE Administration Oxycodone HCl 5 mg 10/09/18 19:09 Roxicodone - PO Q4H PRN PAIN LEVEL 6-10 Pantoprazole Sodium 40 mg 10/09/18 19:15 10/10/18 09:45 Protonix - PO 40 mg DAILY HAILEE Administration Polyethylene Glycol 17 gm 10/09/18 10:00 10/10/18 09:45 Miralax (For Daily Use) - PO Not Given DAILY HAILEE Potassium Chloride 40 meq 10/10/18 12:00 10/10/18 12:48 K-Dur - PO 10/10/18 18:01 40 meq Q6H HAILEE Administration Ranitidine HCl 150 mg 10/08/18 22:00 10/10/18 09:45 Zantac - PO 150 mg BID HAILEE Administration Tramadol HCl 50 mg 10/09/18 19:10 Ultram - PO Q6H PRN PAIN LEVEL 1-5 ASSESSMENT/PLAN: 68 year-old female with a PMH significant for complete heart block s/p PPM, COPD , esophageal stricture, ruptured gallbladder s/p cholecystosomy, metatstatic disease, and prolapsed uterus. Admitted for sepsis secondary to UTI. Now bacteremic. Severe sepsis secondary to GNB UTI Klebsiella bacteremia --Urine: LFGNB --Blood x 1: Klebsiella; blood x 1: LFGNB --continuing meropenem (day #2), metronidazole (day #2) --ID following Pancreatic mass --CORRECTION: Diagnosis of pancreatic cancer made in previous notes not accurate. Patient had negative biopsy at [facility] 11/20/17, copy in chart Metastatic disease --09/12/18 CT: multiple hepatic masses consistent with metastatic disease; peripancreatic fluid and dilitation of pancreatic duct --uncertain primary source --liver biopsy when more stable --oncology following Main portal vein thrombus --seen on 10/02 US --lovenox 50mg x 1 given in ED --will continue lovenox 40mg q12 Biliary obstruction s/p CBD stenting Ruptured gallbladder --s/p cholecystostomy --s/p biliary stenting Esophageal stricture --s/p dilation 07/01/18, 08/21/18 --09/10 CTAP shows marked narrowing --Dr. Colindres follows as outpatient; consult requested Hyperbilirubinemia --total bili 1.5; repeat in am Hypoalbuminemia --corrected Ca 8.6 Anemia --Hgb 7.3 --occult stool negative --hematuria present --trend h/h --type and screen Mild COPD --not on home meds --duonebs PRN Prolapsed uterus, chronic --since 1982 --has to manipulate the uterus in order to urinate --patient did not tolerate pessary Heart block --s/p PPM --find out when PPM last interrogated --not on home cardiac meds --telemetry monitoring for now Diastolic heart failure --11/12/17 Echo ([facility]): LV systolic normal, EF 60-65%; LV impaired relaxation; RV normal; no significant valvular diease; mild pHTN Hyponatremia --D51/2NS @ 75 Hypokalemia --replete Hypomagnesemia --replete Severe malnutrition FEN Fluids: PO intake adequate Electrolytes: replete as indicated Nutrition: NPO DVT prophylaxis: on full dose lovenox Dispo: continues to require inpatient care. Full code. PCP: Dr. Jacobs Visit type - Emergency Visit Emergency Visit: Yes ED Registration Date: 10/08/18 Care time: The patient presented to the Emergency Department on the above date and was hospitalized for further evaluation of their emergent condition. - New Patient This patient is new to me today: No - Critical Care Critical Care patient: No
[2018-10-10] MEDS: DOCUSATE SODIUM 100 MG CAPSULE (FP) PO SCH (21:54)
--- NOTE | 2018-10-10 22:16 | CONSULT ---
Consult Consult Specialty:: onc Reason for Consultation:: met disease - History of Present Illness Chief Complaint: weakness, chills History of Present Illness: Hx largely relayed to me by Dr Colindres pt presented 1 yr ago w obstructive jaundice and underwent larry stenting. Following this there was a gb perf and complic hosp course including complete heartblock. Reportedly had bx of panc lesion x2, no malig detected. Unclear subsequent f/u. Recently became known to Dr Colindres ?in setting of dysphagia. Esoph stricture and liver lesions discovered on imaging Ca 19-9 [id number] She was ref for bx liver lesion per IR but has not scheduled appt. In meantime, presented to ED w prog weakness, chills, wt loss w poor micki and difficulty swallowing. Found to have urosepsis - History Source History Provided By: Patient, Family Member, Medical Record Limitations to Obtaining History: Poor Historian - Past Medical History Cardio/Vascular: Yes: Other (heart block, PM) Pulmonary: Yes: COPD Gastrointestinal: Yes: Cancer Hepatobiliary: Yes: Other (larry stent, gb perf) - Alcohol/Substance Use Hx Alcohol Use: Yes (social) - Smoking History Smoking history: Former smoker Have you smoked in the past 12 months: No Aproximately how many cigarettes per day: 0 If you are a former smoker, when did you quit?: 2017 Home Medications - Allergies Allergies/Adverse Reactions: Allergies Allergy/AdvReac Type Severity Reaction Status Date / Time acetaminophen [From Tylenol] Allergy Intermediate Rash Verified 10/08/18 12:32 latex Allergy Intermediate Rash Verified 10/08/18 12:32 - Home Medications Home Medications: Ambulatory Orders Lactobacillus Combination No.4 [Probiotic] 1 each PO BID 05/22/18 Ranitidine HCl [Zantac] 150 mg PO BID 07/01/18 Review of Systems - Review of Systems Constitutional: reports: Chills, Loss of Appetite, Unintentional Wgt. Loss, Weakness Gastrointestinal: reports: Other (dysphagia) Physical Exam Vital Signs: Vital Signs Temperature 98.9 F 10/10/18 22:00 Pulse Rate 78 10/10/18 22:00 Respiratory Rate 17 10/10/18 22:00 Blood Pressure 114/58 L 10/10/18 22:00 O2 Sat by Pulse Oximetry (%) 97 10/10/18 21:00 Constitutional: Yes: No Distress, Pallor, Other (mildly cachectic) Eyes: Yes: Conjunctiva Clear Neck: Yes: Supple Cardiovascular: Yes: Regular Rate and Rhythm, S1 Respiratory: Yes: CTA Bilaterally Gastrointestinal: Yes: Normal Bowel Sounds, Soft Edema: No Labs: CBC, BMP 10/10/18 07:58 10/10/18 07:58 Assessment/Plan 68 yof w met process involving biliary obstruction s/p stent, panc duct dil, esoph stricture, liver mets reportedly underwent bx panc lesion x 2 w no malig captured she was set up for liver bx which should be pursued once urosepsis cleared I revd this w pt and her son Deniz in [place] on phone. They understand the suspicion for adv panc cancer, need to first treat infxn, need to obtain tissue bx for a confirmed dx prior to consideration of any tx. Deniz expresses interest in obtaining [facility] opinion. I revd that plan would be to f/u as outpt w oncologist of familys choice. Has PVT and a/c started w lovenox. Monitor cbc. Would transfuse if Hb stays<8 d/w team
[2018-10-11] MEDS ORDERED: PT OWN MED DRAWER 7, Y5N ONE (00:51)
[2018-10-11] MEDS: DEXTROSE 5%-0.45% SALINE 1,000 ML IV SCH (01:09)
[2018-10-11] MEDS: MEROPENEM 1 GM in DEXTROSE 5%-WATER 100 ML IVPB SCH (01:10)
[2018-10-11 08:38] LABS: BASO % 0.5 % (0-2.0); EOS % 0.5 % (0-4.5); HEMATOCRIT 22.5 % (32.4-45.2); HEMOGLOBIN 7.2 GM/dl (10.7-15.3); LYMPH % 14.8 % (8-40); MCH 27.6 pg (25.7-33.7); MCHC 31.8 g/dl (32.0-36.0); MEAN CELL VOLUME 86.7 fl (80-96); MEAN PLT VOLUME 11.1 fl (7.5-11.1); MONO % 5.9 % (3.8-10.2); NEUT % 78.3 % (42.8-82.8); PLATELET COUNT 227 K/MM3 (134-434); RDW 16.1 % (11.6-15.6); WHITE BLOOD COUNT 8.3 K/mm3 (4.0-10.8)
[2018-10-11 08:49] LABS: ALBUMIN 1.4 g/dl (3.5-5.0); ALK PHOS 104 U/L (32-92); ANION GAP 2 MMOL/L (8-16); BILIRUBIN,TOTAL 0.9 mg/dl (0.2-1.0); CHLORIDE 103 mmol/L (98-107); CO2 23 mmol/L (22-28); CREATININE 0.3 mg/dl (0.6-1.3); GLUCOSE,RANDOM 105 mg/dl (74-106); MAGNESIUM 1.6 mg/dL (1.8-2.4); PHOSPHOROUS 1.9 mg/dl (2.5-4.6); SGOT/AST 13 U/L (10-42); SGPT/ALT 6 U/L (10-40); SODIUM 128 mmol/L (136-145); TOT PROT 4.3 g/dl (6.4-8.3)
[2018-10-11 09:11] LABS: BLOOD UREA NITROGEN < 5 mg/dl (7-18)
[2018-10-11 09:20] LABS: CALCIUM 6.9 mg/dl (8.4-10.2)
--- NOTE | 2018-10-11 09:21 | PN ---
Progress Note, Physician Chief Complaint: Awake, alert c/o anorexia, nausea No c/o abdominal pain No c/o fever + formed BMs Temps down Afebrile WBC improved BC Klebsiella (s) cefazolin - Current Medication List Current Medications: Active Medications Docusate Sodium (Colace -) 300 mg PO HS [facility] Last Admin: 10/10/18 21:54 Dose: Not Given Enoxaparin Sodium (Lovenox -) 40 mg SQ BID [facility] Last Admin: 10/10/18 21:53 Dose: 40 mg Dextrose/Sodium Chloride (D5-1/2ns -) 1,000 mls @ 75 mls/hr IV ASDIR [facility] Last Admin: 10/11/18 01:09 Dose: 75 mls/hr Meropenem 1 gm/ Dextrose 100 mls @ 200 mls/hr IVPB Q8H-IV [facility] Last Admin: 10/11/18 01:10 Dose: 200 mls/hr Metronidazole (Flagyl 500mg Premixed Ivpb -) 500 mg in 100 mls @ 100 mls/hr IVPB Q8H-IV [facility] Last Admin: 10/11/18 02:00 Dose: 100 mls/hr Oxycodone HCl (Roxicodone -) 5 mg PO Q4H PRN PRN Reason: PAIN LEVEL 6-10 Pantoprazole Sodium (Protonix -) 40 mg PO DAILY [facility] Last Admin: 10/10/18 09:45 Dose: 40 mg Polyethylene Glycol (Miralax (For Daily Use) -) 17 gm PO DAILY [facility] Last Admin: 10/10/18 09:45 Dose: Not Given Ranitidine HCl (Zantac -) 150 mg PO BID [facility] Last Admin: 10/10/18 21:54 Dose: Not Given Tramadol HCl (Ultram -) 50 mg PO Q6H PRN PRN Reason: PAIN LEVEL 1-5 - Objective Vital Signs: Vital Signs Temperature 98.2 F 10/11/18 04:47 Pulse Rate 72 10/11/18 04:47 Respiratory Rate 20 10/11/18 04:47 Blood Pressure 107/56 L 10/11/18 04:47 O2 Sat by Pulse Oximetry (%) 97 10/10/18 21:00 Constitutional: Yes: No Distress, Cachectic Eyes: Yes: Conjunctiva Clear Cardiovascular: Yes: Regular Rate and Rhythm, S1, S2 Respiratory: Yes: CTA Bilaterally Gastrointestinal: Yes: Normal Bowel Sounds, Soft, Tenderness (+ epigastric tenderness to palp) Edema: No Labs: CBC, BMP 10/11/18 07:51 10/11/18 07:51 INR, PTT INR 1.20 (0.82-1.09) 10/09/18 08:05 Assessment/Plan Gram Negative bacteremia/ sepsis likely source Metastatic ca UTI Hx biliary obstruction/ stent Substitute cefazolin 2gm IVPB q8h Repeat BC am
[2018-10-11] MEDS: ENOXAPARIN NA (PORCINE) 40 MG/0.4 ML DISP.SYRIN SQ SCH ×2 (10:46→21:30)
[2018-10-11] MEDS: CEFAZOLIN 2 GM/D5W 2 GM/50 ML ML IVPB SCH ×2 (10:46→17:32)
[2018-10-11] MEDS: POLYETHYLENE GLYCOL 3350 119 GM BTL PO SCH (10:46)
[2018-10-11] MEDS: RANITIDINE HCL 150 MG TABLET (FP) PO SCH ×2 (10:47→21:43)
[2018-10-11] MEDS: PANTOPRAZOLE 40 MG TABLET (FP) PO SCH (10:47)
--- NOTE | 2018-10-11 11:21 | PN ---
Physical Exam: SUBJECTIVE: Patient seen and examined at bedside. Fatigued and no appetite. OBJECTIVE: Vital Signs Period Temp Pulse Resp BP Sys/Hartmann Pulse Ox Last 24 Hr 98 F-98.9 F 72-85 16-20 107-118/40-69 97-97 GENERAL: Awake, alert, and fully oriented, in no acute distress. Thin, frail, cachectic. Temporal wasting. Absence of body fat. Protruding clavicles. EYES: Pale conjunctiva LUNGS: Breath sounds equal, clear to auscultation bilaterally. No wheezes, and no crackles. No accessory muscle use. HEART: Regular rate and rhythm, S1 and S2 without murmur, rub or gallop. ABDOMEN: LUQ tenderness GI: prolapsed uterus MUSCULOSKELETAL: Normal range of motion at all joints. No bony deformities or tenderness. No CVA tenderness. UPPER EXTREMITIES: 2+ pulses, warm, well-perfused. No cyanosis. No clubbing. No peripheral edema. LOWER EXTREMITIES: 2+ pulses, warm, well-perfused. No calf tenderness. No peripheral edema. NEUROLOGICAL: Cranial nerves II-XII intact. Normal speech. Steady gait. Laboratory Results - last 24 hr 10/09/18 10/09/18 10/11/18 07:40 08:05 07:51 WBC 8.3 RBC 2.60 L Hgb 7.2 L Hct 22.5 L MCV 86.7 MCH 27.6 MCHC 31.8 L RDW 16.1 H Plt Count 227 MPV 11.1 Absolute Neuts (auto) 6.6 Neutrophils % 78.3 Lymphocytes % 14.8 Monocytes % 5.9 Eosinophils % 0.5 Basophils % 0.5 Sodium Potassium Chloride Carbon Dioxide Anion Gap BUN Creatinine Creat Clearance w eGFR Random Glucose Calcium Phosphorus Magnesium Total Bilirubin AST ALT Alkaline Phosphatase Total Protein Albumin Crossmatch See Detail See Detail 10/11/18 07:51 WBC RBC Hgb Hct MCV MCH MCHC RDW Plt Count MPV Absolute Neuts (auto) Neutrophils % Lymphocytes % Monocytes % Eosinophils % Basophils % Sodium 128 L Potassium 4.0 D Chloride 103 Carbon Dioxide 23 Anion Gap 2 L BUN < 5 L Creatinine 0.3 L Creat Clearance w eGFR > 60 Random Glucose 105 Calcium 6.9 L* Phosphorus 1.9 L Magnesium 1.6 L Total Bilirubin 0.9 AST 13 ALT 6 L Alkaline Phosphatase 104 H Total Protein 4.3 L Albumin 1.4 L Crossmatch Active Medications Generic Name Dose Route Start Last Admin Trade Name Freq PRN Reason Stop Dose Admin Docusate Sodium 300 mg 10/08/18 22:00 10/10/18 21:54 Colace - PO Not Given HS [facility] Enoxaparin Sodium 40 mg 10/09/18 04:00 10/11/18 10:46 Lovenox - SQ 40 mg BID [facility] Administration Dextrose/Sodium Chloride 1,000 mls @ 75 mls/hr 10/09/18 00:15 10/11/18 01:09 D5-1/2ns - IV 75 mls/hr ASDIR [facility] Administration Cefazolin Sodium/Dextrose 2 gm in 50 mls @ 100 mls/hr 10/11/18 10:00 10:46 Ancef 2 Gm Premixed Ivpb - IVPB 100 mls/hr Q8H-IV [facility] Administration Oxycodone HCl 5 mg 10/09/18 19:09 Roxicodone - PO Q4H PRN PAIN LEVEL 6-10 Pantoprazole Sodium 40 mg 10/09/18 19:15 10/11/18 10:47 Protonix - PO 40 mg DAILY [facility] Administration Polyethylene Glycol 17 gm 10/09/18 10:00 10/11/18 10:46 Miralax (For Daily Use) - PO 17 gm DAILY [facility] Administration Ranitidine HCl 150 mg 10/08/18 22:00 10/11/18 10:47 Zantac - PO 150 mg BID [facility] Administration Tramadol HCl 50 mg 10/09/18 19:10 Ultram - PO Q6H PRN PAIN LEVEL 1-5 ASSESSMENT/PLAN 68 year-old female with a PMH significant for complete heart block s/p PPM, COPD , esophageal stricture, ruptured gallbladder s/p cholecystosomy, metatstatic disease, and prolapsed uterus. Admitted for sepsis secondary to UTI. Now bacteremic. Severe sepsis secondary to E. coli UTI Klebsiella bacteremia --afebrile 48 hours, leukocytosis resolved, hemodynamically stable --Urine: E. coli sensitive to cephazolin --Blood x 2: Klebsiella sensitive to cephazolin --meropenem x 2 days; switch to cephazolin (day #1) --ID following Pancreatic mass --CORRECTION: Diagnosis of pancreatic cancer made in previous notes not accurate. Patient had negative biopsy at [facility] 11/20/17, copy in chart Metastatic disease --09/12/18 CT: multiple hepatic masses consistent with metastatic disease; peripancreatic fluid and dilitation of pancreatic duct --uncertain primary source --liver biopsy when more stable --oncology following Main portal vein thrombus --seen on 10/02 US --will continue lovenox 40mg q12 Biliary obstruction s/p CBD stenting Ruptured gallbladder --s/p cholecystostomy --s/p biliary stenting Esophageal stricture --s/p dilation 07/01/18, 08/21/18 --09/10/18 CTAP shows marked narrowing --Dr. Colindres following Hyperbilirubinemia --repleted Hypoalbuminemia --corrected Ca 8.6 Anemia --Hgb 7.3 with fatigue --transfuse 1U PRBC Mild COPD --not on home meds --duonebs PRN Prolapsed uterus, chronic --since 1982 --has to manipulate the uterus in order to urinate --patient did not tolerate pessary Heart block --s/p PPM --find out when PPM last interrogated --not on home cardiac meds --telemetry monitoring for now Diastolic heart failure --11/12/17 Echo ([facility]): LV systolic normal, EF 60-65%; LV impaired relaxation; RV normal; no significant valvular diease; mild pHTN Hyponatremia --switch to NS Hypokalemia --replete Hypomagnesemia --replete Severe malnutrition FEN Fluids: NS@75mL/hr Electrolytes: replete as indicated Nutrition: soft diet DVT prophylaxis: on full dose lovenox Dispo: continues to require inpatient care. Full code. PCP: Dr. Jacobs Visit type - Emergency Visit Emergency Visit: Yes ED Registration Date: 10/08/18 Care time: The patient presented to the Emergency Department on the above date and was hospitalized for further evaluation of their emergent condition. - New Patient This patient is new to me today: No - Critical Care Critical Care patient: No
[2018-10-11] MEDS ORDERED: SODIUM CHLORIDE 1,000 ML IV SCH (11:45)
[2018-10-11] MEDS ORDERED: MAGNESIUM SULF 50% (8.12 MEQ/2 ML-1 GM VIAL) IVPB ONE (11:50)
[2018-10-11] MEDS ORDERED: MAGNESIUM SULF 50% (8.12 MEQ/2 ML-1 GM VIAL) ONE (11:57)
[2018-10-11] MEDS ORDERED: MAGNESIUM SULFATE IN WATER 2 GM/50 ML IVPB IVPB ONE (12:30)
[2018-10-11] MEDS: NAPH,MB-DB/K PH,MBDB POWDER PACKET PO SCH ×2 (14:26→17:33)
[2018-10-11] MEDS ORDERED: NAPH,MB-DB/K PH,MBDB POWDER PACKET PO SCH (18:00)
[2018-10-11] MEDS ORDERED: PROCHLORPERAZINE MALEATE 5 MG TABLET PO ONE (21:15)
[2018-10-11] MEDS: DOCUSATE SODIUM 100 MG CAPSULE (FP) PO SCH (21:43)
[2018-10-12] MEDS: CEFAZOLIN 2 GM/D5W 2 GM/50 ML ML IVPB SCH ×3 (01:27→17:33)
[2018-10-12] MEDS: POLYETHYLENE GLYCOL 3350 119 GM BTL PO SCH (09:46)
[2018-10-12] MEDS: ENOXAPARIN NA (PORCINE) 40 MG/0.4 ML DISP.SYRIN SQ SCH ×2 (09:47→21:29)
[2018-10-12] MEDS: NAPH,MB-DB/K PH,MBDB POWDER PACKET PO SCH ×3 (09:47→17:32)
[2018-10-12] MEDS: RANITIDINE HCL 150 MG TABLET (FP) PO SCH ×2 (09:47→22:54)
[2018-10-12] MEDS: PANTOPRAZOLE 40 MG TABLET (FP) PO SCH (09:47)
[2018-10-12 11:12] LABS: BASO % 0.8 % (0-2.0); EOS % 0.5 % (0-4.5); HEMATOCRIT 32.9 % (32.4-45.2); HEMOGLOBIN 10.6 GM/dl (10.7-15.3); LYMPH % 12.7 % (8-40); MCH 27.8 pg (25.7-33.7); MCHC 32.2 g/dl (32.0-36.0); MEAN CELL VOLUME 86.5 fl (80-96); MONO % 4.9 % (3.8-10.2); NEUT % 81.1 % (42.8-82.8); PLATELET COUNT 322 K/MM3 (134-434); RDW 16.1 % (11.6-15.6); WHITE BLOOD COUNT 11.1 K/mm3 (4.0-10.8)
[2018-10-12 11:17] LABS: ALBUMIN 1.6 g/dl (3.5-5.0); ALK PHOS 116 U/L (32-92); ANION GAP 5 MMOL/L (8-16); BILIRUBIN,TOTAL 0.7 mg/dl (0.2-1.0); BLOOD UREA NITROGEN 4 mg/dl (7-18); CALCIUM 7.2 mg/dl (8.4-10.2); CHLORIDE 102 mmol/L (98-107); CO2 21 mmol/L (22-28); CREATININE 0.3 mg/dl (0.6-1.3); GLUCOSE,RANDOM 142 mg/dl (74-106); POTASSIUM 4.1 mmol/L (3.5-5.1); SGOT/AST 16 U/L (10-42); SGPT/ALT 6 U/L (10-40); SODIUM 128 mmol/L (136-145); TOT PROT 5.1 g/dl (6.4-8.3)
[2018-10-12] MEDS: oxyCODONE HCL 5 MG TABLET PO PRN (13:05)
--- NOTE | 2018-10-12 14:43 | PN ---
Physical Exam: SUBJECTIVE: Patient seen and examined at bedside. Sisters present. Has LLQ pain , asked for pain medication. OBJECTIVE: Vital Signs Period Temp Pulse Resp BP Sys/Hartmann Pulse Ox Last 24 Hr 97.6 F-100 F 70-82 16-20 114-139/42-90 95-100 GENERAL: Awake, alert, and fully oriented, in no acute distress. Thin, frail, cachectic. Temporal wasting. Absence of body fat. Protruding clavicles. LUNGS: Breath sounds equal, clear to auscultation bilaterally. No wheezes, and no crackles. No accessory muscle use. HEART: Regular rate and rhythm, S1 and S2 without murmur, rub or gallop. ABDOMEN: Soft, mild diffuse tenderness GI: prolapsed uterus MUSCULOSKELETAL: Normal range of motion at all joints. No bony deformities or tenderness. No CVA tenderness. UPPER EXTREMITIES: 2+ pulses, warm, well-perfused. No cyanosis. No clubbing. No peripheral edema. LOWER EXTREMITIES: 2+ pulses, warm, well-perfused. No calf tenderness. No peripheral edema. NEUROLOGICAL: Cranial nerves II-XII intact. Normal speech. Laboratory Results - last 24 hr 10/12/18 10/12/18 10/12/18 10:25 10:25 12:46 WBC 11.1 H RBC 3.80 Hgb 10.6 L Hct 32.9 D MCV 86.5 MCH 27.8 MCHC 32.2 RDW 16.1 H Plt Count 322 MPV 12.0 H Absolute Neuts (auto) 9.0 Neutrophils % 81.1 Lymphocytes % 12.7 Monocytes % 4.9 Eosinophils % 0.5 Basophils % 0.8 Sodium 128 L Potassium 4.1 Chloride 102 Carbon Dioxide 21 L Anion Gap 5 L BUN 4 L Creatinine 0.3 L Creat Clearance w eGFR > 60 Random Glucose 142 H D Calcium 7.2 L Phosphorus 2.7 D Magnesium 2.0 Total Bilirubin 0.7 AST 16 D ALT 6 L Alkaline Phosphatase 116 H D Total Protein 5.1 L Albumin 1.6 L Active Medications Generic Name Dose Route Start Last Admin Trade Name Freq PRN Reason Stop Dose Admin Docusate Sodium 300 mg 10/08/18 22:00 10/11/18 21:43 Colace - PO Not Given [facility] Enoxaparin Sodium 40 mg 10/09/18 04:00 10/12/18 09:47 Lovenox - SQ 40 mg BID [facility] Administration Cefazolin Sodium/Dextrose 2 gm in 50 mls @ 100 mls/hr 10/11/18 10:00 09:47 Ancef 2 Gm Premixed Ivpb - IVPB 100 mls/hr Q8H-IV [facility] Administration Oxycodone HCl 5 mg 10/09/18 19:09 Roxicodone - PO Q4H PRN PAIN LEVEL 6-10 Pantoprazole Sodium 40 mg 10/09/18 19:15 10/12/18 09:47 Protonix - PO 40 mg DAILY [facility] Administration Polyethylene Glycol 17 gm 10/09/18 10:00 10/12/18 09:46 Miralax (For Daily Use) - PO Not Given DAILY [facility] Potassium Phos/Sodium Phos 2 packet 10/11/18 14:00 10/12/18 09:47 Phos-Nak Packet - PO 2 packet 1000,1400 [facility] Administration Potassium Phos/Sodium Phos 1 packet 10/11/18 18:00 10/11/18 17:33 Phos-Nak Packet - PO 1 packet 1800 [facility] Administration Ranitidine HCl 150 mg 10/08/18 22:00 10/12/18 09:47 Zantac - PO 150 mg BID [facility] Administration Tramadol HCl 50 mg 10/09/18 19:10 Ultram - PO Q6H PRN PAIN LEVEL 1-5 Microbiology 10/08/18 13:29 Urine - Urine Clean Catch Urine Culture - Final Escherichia Coli Enterococcus Faecalis 10/08/18 15:15 Blood - Peripheral Venous Blood Culture - Final Lactose Fermenting Neg Bacilli 10/08/18 15:10 Blood - Peripheral Venous Blood Culture - Final Klebsiella Pneumoniae ASSESSMENT/PLAN 68 year-old female with a PMH significant for complete heart block s/p PPM, COPD , esophageal stricture, ruptured gallbladder s/p cholecystosomy, metatstatic disease, and prolapsed uterus. Admitted for sepsis secondary to UTI. Now bacteremic. Severe sepsis secondary to E. coli UTI Klebsiella bacteremia --afebrile 72 hours, mild bump in WBC, modynamically stable --Urine: E. coli sensitive to cephazolin --Blood x 2: Klebsiella sensitive to cephazolin --meropenem x 2 days; continue cephazolin (day #2) --ID following Pancreatic mass --CORRECTION: Diagnosis of pancreatic cancer made in previous notes not accurate. Patient had negative biopsy at [facility] 11/20/17, copy in chart Metastatic disease --09/12/18 CT: multiple hepatic masses consistent with metastatic disease; peripancreatic fluid and dilitation of pancreatic duct --uncertain primary source --liver biopsy when more stable, possibly Sunday --oncology following Main portal vein thrombus --seen on 10/02 US --continue therapeutic lovenox Biliary obstruction s/p CBD stenting Ruptured gallbladder --s/p cholecystostomy --s/p biliary stenting Esophageal stricture --s/p dilation 07/01/18, 08/21/18 --09/10/18 CTAP shows marked narrowing --Dr. Colindres following Hyperbilirubinemia --resolved Hypoalbuminemia --corrected Ca 9.1 Anemia --transfused 1U PRBC on 10/11 with good response, Hgb 7.3--> 10.6 Mild COPD --not on home meds --duonebs PRN Prolapsed uterus, chronic --since 1982 --has to manipulate the uterus in order to urinate --patient did not tolerate pessary Heart block --s/p PPM --find out when PPM last interrogated --not on home cardiac meds --telemetry monitoring for now Diastolic heart failure --11/12/17 Echo ([facility]): LV systolic normal, EF 60-65%; LV impaired relaxation; RV normal; no significant valvular diease; mild pHTN Hyponatremia --appears euvolemic, stop fluids Hypokalemia, hypomagnesemia, hypophosphatemia --resolved Severe malnutrition FEN Fluids: PO intake adequate Electrolytes: replete as indicated Nutrition: soft diet DVT prophylaxis: hold lovenox Sunday for possible biopsy on Sunday Dispo: continues to require inpatient care. Full code. PCP: Dr. Jacobs Visit type - Emergency Visit Emergency Visit: Yes ED Registration Date: 10/08/18 Care time: The patient presented to the Emergency Department on the above date and was hospitalized for further evaluation of their emergent condition. - New Patient This patient is new to me today: No - Critical Care Critical Care patient: No
[2018-10-12] MEDS: DOCUSATE SODIUM 100 MG CAPSULE (FP) PO SCH (22:54)
[2018-10-13] MEDS: CEFAZOLIN 2 GM/D5W 2 GM/50 ML ML IVPB SCH ×3 (01:58→18:15)
[2018-10-13 09:43] LABS: ALBUMIN 1.4 g/dl (3.5-5.0); ALK PHOS 106 U/L (32-92); ANION GAP 7 MMOL/L (8-16); BILIRUBIN,TOTAL 0.6 mg/dl (0.2-1.0); CALCIUM 7.1 mg/dl (8.4-10.2); CHLORIDE 100 mmol/L (98-107); CO2 23 mmol/L (22-28); GLUCOSE,RANDOM 64 mg/dl (74-106); MAGNESIUM 1.9 mg/dL (1.8-2.4); POTASSIUM 4.5 mmol/L (3.5-5.1); SGOT/AST 16 U/L (10-42); SODIUM 130 mmol/L (136-145); TOT PROT 4.4 g/dl (6.4-8.3)
[2018-10-13 09:45] LABS: BASO % 0.4 % (0-2.0); EOS % 1.1 % (0-4.5); HEMATOCRIT 26.4 % (32.4-45.2); HEMOGLOBIN 8.4 GM/dl (10.7-15.3); LYMPH % 13.7 % (8-40); MCH 27.6 pg (25.7-33.7); MEAN CELL VOLUME 86.4 fl (80-96); MEAN PLT VOLUME 10.9 fl (7.5-11.1); MONO % 6.3 % (3.8-10.2); NEUT % 78.5 % (42.8-82.8); PLATELET COUNT 229 K/MM3 (134-434); RBC 3.06 M/mm3 (3.60-5.2); WHITE BLOOD COUNT 8.4 K/mm3 (4.0-10.8)
[2018-10-13 09:54] LABS: BLOOD UREA NITROGEN < 5 mg/dl (7-18); CREATININE < 0.6 mg/dl (0.6-1.3); SGPT/ALT < 8 U/L (10-40)
[2018-10-13] MEDS: PANTOPRAZOLE 40 MG TABLET (FP) PO SCH (10:38)
[2018-10-13] MEDS: POLYETHYLENE GLYCOL 3350 119 GM BTL PO SCH (10:38)
[2018-10-13] MEDS: RANITIDINE HCL 150 MG TABLET (FP) PO SCH ×2 (10:38→21:54)
--- NOTE | 2018-10-13 13:58 | PN ---
Physical Exam: SUBJECTIVE: Patient seen and examined, c/o having trouble swallowing food, requesting chopped up. OBJECTIVE: Vital Signs Period Temp Pulse Resp BP Sys/Hartmann Pulse Ox Last 24 Hr 97.6 F-98.7 F 70-76 16-20 105-116/57-68 99-100 GENERAL: The patient is awake, alert, and fully oriented, in no acute distress. HEAD: Normal with no signs of trauma. EYES: PERRL, extraocular movements intact, sclera anicteric, conjunctiva clear. No ptosis. ENT: Ears normal, nares patent, oropharynx clear without exudates, moist mucous membranes. NECK: Trachea midline, full range of motion, supple. LUNGS: Breath sounds equal, clear to auscultation bilaterally, no wheezes, no crackles, no accessory muscle use. HEART: Regular rate and rhythm, S1, S2 without murmur, rub or gallop. ABDOMEN: Soft, nontender, nondistended, normoactive bowel sounds, no guarding, no rebound, no hepatosplenomegaly, no masses. EXTREMITIES: 2+ pulses, warm, well-perfused, no edema. NEUROLOGICAL: Cranial nerves II through XII grossly intact. Normal speech, gait not observed. PSYCH: Normal mood, normal affect. SKIN: Warm, dry, normal turgor, no rashes or lesions noted Laboratory Results - last 24 hr 10/13/18 10/13/18 06:30 06:30 WBC 8.4 RBC 3.06 L Hgb 8.4 L Hct 26.4 L D MCV 86.4 MCH 27.6 MCHC 32.0 RDW 16.0 H Plt Count 229 MPV 10.9 Absolute Neuts (auto) 6.7 Neutrophils % 78.5 Lymphocytes % 13.7 Monocytes % 6.3 Eosinophils % 1.1 Basophils % 0.4 Sodium 130 L Potassium 4.5 Chloride 100 Carbon Dioxide 23 Anion Gap 7 L BUN < 5 L Creatinine < 0.6 L Creat Clearance w eGFR > 60 Random Glucose 64 L D Calcium 7.1 L Phosphorus 3.0 Magnesium 1.9 Total Bilirubin 0.6 AST 16 ALT < 8 L D Alkaline Phosphatase 106 H D Total Protein 4.4 L Albumin 1.4 L Active Medications Generic Name Dose Route Start Last Admin Trade Name Freq PRN Reason Stop Dose Admin Docusate Sodium 300 mg 10/08/18 22:00 10/12/18 22:54 Colace - PO Not Given HS [facility] Cefazolin Sodium/Dextrose 2 gm in 50 mls @ 100 mls/hr 10/11/18 10:00 10:37 Ancef 2 Gm Premixed Ivpb - IVPB 100 mls/hr Q8H-IV [facility] Administration Oxycodone HCl 5 mg 10/09/18 19:09 10/12/18 13:05 Roxicodone - PO 5 mg Q4H PRN Administration PAIN LEVEL 6-10 Pantoprazole Sodium 40 mg 10/09/18 19:15 10/13/18 10:38 Protonix - PO 40 mg DAILY [facility] Administration Polyethylene Glycol 17 gm 10/09/18 10:00 10/13/18 10:38 Miralax (For Daily Use) - PO Not Given DAILY [facility] Ranitidine HCl 150 mg 10/08/18 22:00 10/13/18 10:38 Zantac - PO 150 mg BID [facility] Administration Tramadol HCl 50 mg 10/09/18 19:10 Ultram - PO Q6H PRN PAIN LEVEL 1-5 10/08/18 13:29 Urine - Urine Clean Catch Urine Culture - Final Escherichia Coli Enterococcus Faecalis 10/08/18 15:15 Blood - Peripheral Venous Blood Culture - Final Lactose Fermenting Neg Bacilli 10/08/18 15:10 Blood - Peripheral Venous Blood Culture - Final Klebsiella Pneumoniae ASSESSMENT/PLAN: 68 year-old female with a PMH significant for complete heart block s/p PPM, COPD , esophageal stricture, ruptured gallbladder s/p cholecystosomy, metatstatic disease, and prolapsed uterus. Admitted for sepsis secondary to UTI. Now bacteremic. Severe sepsis secondary to E. coli UTI Klebsiella bacteremia --afebrile 72 hours, mild bump in WBC, modynamically stable --Urine: E. coli sensitive to cephazolin --Blood x 2: Klebsiella sensitive to cephazolin --meropenem x 2 days; continue cephazolin (day #3) --ID following Pancreatic mass --CORRECTION: Diagnosis of pancreatic cancer made in previous notes not accurate. Patient had negative biopsy at [facility] 11/20/17, copy in chart Metastatic disease --09/12/18 CT: multiple hepatic masses consistent with metastatic disease; peripancreatic fluid and dilitation of pancreatic duct --uncertain primary source --liver biopsy when more stable, possibly Sunday --oncology following Main portal vein thrombus --seen on 10/02 US --continue therapeutic lovenox Biliary obstruction s/p CBD stenting Ruptured gallbladder --s/p cholecystostomy --s/p biliary stenting Esophageal stricture --s/p dilation 07/01/18, 08/21/18 --09/10/18 CTAP shows marked narrowing --Dr. Colindres following Hyperbilirubinemia --resolved Hypoalbuminemia --corrected Ca 9.1 Anemia --s/p 1U PRBC on 10/11 with good response, Hgb today 7.3- 10.6, today hg 8.4 Mild COPD --not on home meds --duonebs PRN Prolapsed uterus, chronic --since 1982 --has to manipulate the uterus in order to urinate --patient did not tolerate pessary Heart block --s/p PPM --find out when PPM last interrogated --not on home cardiac meds --telemetry monitoring for now Diastolic heart failure --11/12/17 Echo ([facility]): LV systolic normal, EF 60-65%; LV impaired relaxation; RV normal; no significant valvular diease; mild pHTN Hyponatremia --appears euvolemic, stop fluids Hypokalemia, hypomagnesemia, hypophosphatemia --resolved Severe malnutrition -- diet to changed to dysphagia chopped FEN Fluids: PO intake adequate Electrolytes: replete as indicated Nutrition: soft diet DVT prophylaxis: hold lovenox Sunday for possible biopsy on Sunday Dispo: continues to require inpatient care. Full code. PCP: Dr. Jacobs Visit type - Emergency Visit Emergency Visit: Yes ED Registration Date: 10/08/18 Care time: The patient presented to the Emergency Department on the above date and was hospitalized for further evaluation of their emergent condition. - New Patient This patient is new to me today: Yes Date on this admission: 10/13/18 - Critical Care Critical Care patient: No
[2018-10-13] MEDS: oxyCODONE HCL 5 MG TABLET PO PRN (14:39)
[2018-10-13] MEDS ORDERED: IBUPROFEN 800 MG/8 ML IJ IVPB ONE (16:57)
--- NOTE | 2018-10-13 17:05 | HOSP ---
Subjective - Review of Symptoms Events since last encounter: Asked to respond to see patient with shaking chills. Earlier with LLQ pain, now resolved. Patient seen and examined T 101.5 BP 133/102 p112 SpO2 100% on room air General: A&Ox3, rigoring in moderate distress Lungs: CTA CV: S1, S2, rrr Abd: soft, not tender, not distended Upper Ext: 2+ pulses, warm, well-perfused Lower Ext: 2+pulses, warm, well-perfused, no edema, no calf tenderness Plan NS x 500cc bolus IV fluids re-culture blood, urine CXR lactic acid CTAP crp Physical Examination Vital Signs: Vital Signs Temperature 98.2 F 10/13/18 14:04 Pulse Rate 67 10/13/18 14:04 Respiratory Rate 16 10/13/18 14:04 Blood Pressure 120/64 10/13/18 14:04 O2 Sat by Pulse Oximetry (%) 98 10/13/18 14:04 Labs: CBC, BMP 10/13/18 06:30 10/13/18 06:30
[2018-10-13] MEDS ORDERED: SODIUM CHLORIDE 500 ML IV STA ×2 (17:21→18:42)
[2018-10-13] MEDS ORDERED: SODIUM CHLORIDE 1,000 ML IV SCH (17:30)
[2018-10-13 18:14] LABS: HEMOGLOBIN 9.8 GM/dl (10.7-15.3); MCH 27.8 pg (25.7-33.7); RBC 3.52 M/mm3 (3.60-5.2); WHITE BLOOD COUNT 16.6 K/mm3 (4.0-10.8)
[2018-10-13 18:24] LABS: ALBUMIN 1.7 g/dl (3.5-5.0); ALK PHOS 140 U/L (32-92); ANION GAP 8 MMOL/L (8-16); BILIRUBIN,TOTAL 1.5 mg/dl (0.2-1.0); CALCIUM 7.4 mg/dl (8.4-10.2); CHLORIDE 101 mmol/L (98-107); CO2 19 mmol/L (22-28); GLUCOSE,RANDOM 105 mg/dl (74-106); MAGNESIUM 1.7 mg/dL (1.8-2.4); POTASSIUM 4.6 mmol/L (3.5-5.1); SGOT/AST 23 U/L (10-42); SODIUM 128 mmol/L (136-145); TOT PROT 5.1 g/dl (6.4-8.3)
[2018-10-13 18:25] LABS: HEMATOCRIT 30.2 % (32.4-45.2); MCHC 32.4 g/dl (32.0-36.0); MEAN CELL VOLUME 85.7 fl (80-96); MEAN PLT VOLUME 10.6 fl (7.5-11.1); PLATELET COUNT 294 K/MM3 (134-434); RDW 16.5 % (11.6-15.6)
[2018-10-13 18:31] LABS: BLOOD UREA NITROGEN < 5 mg/dl (7-18)
[2018-10-13 18:32] LABS: CREATININE < 0.6 mg/dl (0.6-1.3); SGPT/ALT < 8 U/L (10-40)
[2018-10-13 19:56] LABS: PLATELET ESTIMATE ADEQUATE
[2018-10-13 21:42] LABS: ACTIVATED PTT 26.5 SECONDS (25.2-36.5); INR 1.27 (0.82-1.09); PROTHROMBIN TIME (PATIENT) 14.1 SEC (10.2-13.0)
[2018-10-13] MEDS: DOCUSATE SODIUM 100 MG CAPSULE (FP) PO SCH (21:54)
[2018-10-14] MEDS: CEFAZOLIN 2 GM/D5W 2 GM/50 ML ML IVPB SCH ×3 (01:59→17:12)
[2018-10-14 08:27] LABS: URINE APPEARANCE Clear; URINE BILIRUBIN Negative (NEGATIVE); URINE COLOR Yellow; URINE GLUCOSE (UA) Negative (NEGATIVE); URINE KETONE 1+ (NEGATIVE); URINE LEUK ESTERASE Negative (NEGATIVE); URINE NITRITE Negative (NEGATIVE); URINE PROTEIN Negative (NEGATIVE); URINE UROBILINOGEN 0.2 (0.2-1.0)
[2018-10-14 08:49] LABS: BASO % 0.4 % (0-2.0); EOS % 0.4 % (0-4.5); HEMATOCRIT 27.5 % (32.4-45.2); HEMOGLOBIN 8.9 GM/dl (10.7-15.3); LYMPH % 13.1 % (8-40); MCH 28.2 pg (25.7-33.7); MCHC 32.5 g/dl (32.0-36.0); MEAN CELL VOLUME 86.7 fl (80-96); MEAN PLT VOLUME 10.4 fl (7.5-11.1); NEUT % 81.1 % (42.8-82.8); PLATELET COUNT 208 K/MM3 (134-434); RBC 3.17 M/mm3 (3.60-5.2); RDW 16.5 % (11.6-15.6); WHITE BLOOD COUNT 9.5 K/mm3 (4.0-10.8)
--- NOTE | 2018-10-14 08:58 | PN ---
Progress Note, Physician Chief Complaint: Events noted Developed rigors yesterday, spiked temp 101.5 Presently awake, alert Seated in bed c/o anorexia, transient L and R sided abdominal pain No c/o nausea/ vomiting Reports normal BMs - Current Medication List Current Medications: Active Medications Docusate Sodium (Colace -) 300 mg PO HS [facility] Last Admin: 10/13/18 21:54 Dose: Not Given Cefazolin Sodium/Dextrose (Ancef 2 Gm Premixed Ivpb -) 2 gm in 50 mls @ 100 mls /hr IVPB Q8H-IV [facility] Last Admin: 10/14/18 01:59 Dose: 100 mls/hr Sodium Chloride (Normal Saline -) 1,000 mls @ 100 mls/hr IV ASDIR [facility] Last Admin: 10/13/18 18:13 Dose: 100 mls/hr Ibuprofen (Caldolor Injection -) 800 mg IVPB Q6H PRN PRN Reason: FEVER Oxycodone HCl (Roxicodone -) 5 mg PO Q4H PRN PRN Reason: PAIN LEVEL 6-10 Last Admin: 10/13/18 14:39 Dose: 5 mg Pantoprazole Sodium (Protonix -) 40 mg PO DAILY [facility] Last Admin: 10/13/18 10:38 Dose: 40 mg Polyethylene Glycol (Miralax (For Daily Use) -) 17 gm PO DAILY [facility] Last Admin: 10/13/18 10:38 Dose: Not Given Ranitidine HCl (Zantac -) 150 mg PO BID [facility] Last Admin: 10/13/18 21:54 Dose: 150 mg Tramadol HCl (Ultram -) 50 mg PO Q6H PRN PRN Reason: PAIN LEVEL 1-5 - Objective Vital Signs: Vital Signs Temperature 97.7 F 10/14/18 06:00 Pulse Rate 67 10/14/18 06:00 Respiratory Rate 18 10/14/18 06:00 Blood Pressure 122/45 L 10/14/18 06:00 O2 Sat by Pulse Oximetry (%) 98 10/14/18 08:38 Constitutional: Yes: No Distress, Cachectic Cardiovascular: Yes: Regular Rate and Rhythm, S1, S2 Respiratory: Yes: CTA Bilaterally Gastrointestinal: Yes: Normal Bowel Sounds, Soft, Tenderness, Other (mild bilateral abdominal tenderness) Extremities: No: Calf Tenderness Edema: No Labs: INR, PTT INR 1.27 (0.82-1.09) H 10/13/18 20:55 Assessment/Plan Gram Negative bacteremia/ sepsis v. GI source Metastatic ca UTI Hx biliary obstruction/ stent Continue cefazolin 2gm IVPB q8h Repeat BC obtained CT C/A/P done, official report pending
[2018-10-14 09:01] LABS: ALBUMIN 1.5 g/dl (3.5-5.0); ALK PHOS 121 U/L (32-92); ANION GAP 7 MMOL/L (8-16); BILIRUBIN,TOTAL 0.7 mg/dl (0.2-1.0); BLOOD UREA NITROGEN 4 mg/dl (7-18); CALCIUM 7.2 mg/dl (8.4-10.2); CHLORIDE 100 mmol/L (98-107); CO2 25 mmol/L (22-28); CREATININE 0.3 mg/dl (0.6-1.3); GLUCOSE,RANDOM 73 mg/dl (74-106); MAGNESIUM 1.8 mg/dL (1.8-2.4); POTASSIUM 4.1 mmol/L (3.5-5.1); SGOT/AST 17 U/L (10-42); SGPT/ALT 5 U/L (10-40); SODIUM 132 mmol/L (136-145); TOT PROT 4.6 g/dl (6.4-8.3)
--- NOTE | 2018-10-14 10:12 | PN ---
Physical Exam: SUBJECTIVE: Patient seen and examined. No further episodes of chills. OBJECTIVE: Vital Signs Period Temp Pulse Resp BP Sys/Hartmann Pulse Ox Last 24 Hr 97.7 F-101.5 F 67-107 16-18 99-148/45-83 98-98 General: A&Ox3, in no acute distress Lungs: CTA CV: S1, S2, rrr Abd: soft, not tender, not distended Upper Ext: 2+ pulses, warm, well-perfused Lower Ext: 2+pulses, warm, well-perfused, no edema, no calf tenderness Laboratory Results - last 24 hr 10/13/18 10/13/18 10/13/18 15:40 15:40 15:40 WBC RBC Hgb Hct MCV MCH MCHC RDW Plt Count MPV Absolute Neuts (auto) Neutrophils % Neutrophils % (Manual) Band Neutrophils % Lymphocytes % Lymphocytes % (Manual) Monocytes % Monocytes % (Manual) Eosinophils % Basophils % Platelet Estimate Platelet Comment PT with INR INR PTT (Actin FS) Sodium 128 L Potassium 4.6 Chloride 101 Carbon Dioxide 19 L Anion Gap 8 BUN < 5 L Creatinine < 0.6 L Creat Clearance w eGFR > 60 POC Glucometer Random Glucose 105 D Lactic Acid 2.0 Calcium 7.4 L Magnesium 1.7 L Total Bilirubin 1.5 H AST 23 D ALT < 8 L Alkaline Phosphatase 140 H D C-Reactive Protein 5.4 H Total Protein 5.1 L Albumin 1.7 L Urine Color Urine Appearance Urine pH Ur Specific Wells Urine Protein Urine Glucose (UA) Urine Ketones Urine Blood Urine Nitrite Urine Bilirubin Urine Urobilinogen Ur Leukocyte Esterase 10/13/18 10/13/18 10/13/18 17:03 17:40 20:55 WBC 16.6 H RBC 3.52 L Hgb 9.8 L Hct 30.2 L MCV 85.7 MCH 27.8 MCHC 32.4 RDW 16.5 H Plt Count 294 MPV 10.6 Absolute Neuts (auto) 15.8 Neutrophils % No Result Required. Neutrophils % (Manual) 90.0 H Band Neutrophils % 4.0 Lymphocytes % No Result Required. Lymphocytes % (Manual) 4.0 L Monocytes % Monocytes % (Manual) 2 L Eosinophils % Basophils % Platelet Estimate Adequate Platelet Comment Moderate large plt PT with INR 14.1 H INR 1.27 H PTT (Actin FS) 26.5 Sodium Potassium Chloride Carbon Dioxide Anion Gap BUN Creatinine Creat Clearance w eGFR POC Glucometer 85 Random Glucose Lactic Acid Calcium Magnesium Total Bilirubin AST ALT Alkaline Phosphatase C-Reactive Protein Total Protein Albumin Urine Color Urine Appearance Urine pH Ur Specific Wells Urine Protein Urine Glucose (UA) Urine Ketones Urine Blood Urine Nitrite Urine Bilirubin Urine Urobilinogen Ur Leukocyte Esterase 10/14/18 10/14/18 10/14/18 06:59 08:24 08:24 WBC 9.5 RBC 3.17 L Hgb 8.9 L Hct 27.5 L MCV 86.7 MCH 28.2 MCHC 32.5 RDW 16.5 H Plt Count 208 MPV 10.4 Absolute Neuts (auto) 7.8 Neutrophils % 81.1 Neutrophils % (Manual) Band Neutrophils % Lymphocytes % 13.1 Lymphocytes % (Manual) Monocytes % 5.0 Monocytes % (Manual) Eosinophils % 0.4 Basophils % 0.4 Platelet Estimate Platelet Comment PT with INR INR PTT (Actin FS) Sodium 132 L Potassium 4.1 Chloride 100 Carbon Dioxide 25 D Anion Gap 7 L BUN 4 L Creatinine 0.3 L Creat Clearance w eGFR > 60 POC Glucometer Random Glucose 73 L D Lactic Acid Calcium 7.2 L Magnesium 1.8 Total Bilirubin 0.7 AST 17 D ALT 5 L D Alkaline Phosphatase 121 H D C-Reactive Protein Total Protein 4.6 L Albumin 1.5 L Urine Color Yellow Urine Appearance Clear Urine pH 7.0 Ur Specific Wells 1.015 Urine Protein Negative Urine Glucose (UA) Negative Urine Ketones 1+ H Urine Blood Negative Urine Nitrite Negative Urine Bilirubin Negative Urine Urobilinogen 0.2 Ur Leukocyte Esterase Negative Active Medications Generic Name Dose Route Start Last Admin Trade Name Camelia PRN Reason Stop Dose Admin Docusate Sodium 300 mg 10/08/18 22:00 10/13/18 21:54 Colace - PO Not Given HS HAILEE Cefazolin Sodium/Dextrose 2 gm in 50 mls @ 100 mls/hr 10/11/18 10:00 01:59 Ancef 2 Gm Premixed Ivpb - IVPB 100 mls/hr Q8H-IV HAILEE Administration Sodium Chloride 1,000 mls @ 100 mls/hr 10/13/18 17:30 10/13/18 18:13 Normal Saline - IV 100 mls/hr ASDIR HAILEE Administration Ibuprofen 800 mg 10/13/18 17:22 Caldolor Injection - IVPB Q6H PRN FEVER Oxycodone HCl 5 mg 10/09/18 19:09 10/13/18 14:39 Roxicodone - PO 5 mg Q4H PRN Administration PAIN LEVEL 6-10 Pantoprazole Sodium 40 mg 10/09/18 19:15 10/13/18 10:38 Protonix - PO 40 mg DAILY HAILEE Administration Polyethylene Glycol 17 gm 10/09/18 10:00 10/13/18 10:38 Miralax (For Daily Use) - PO Not Given DAILY HAILEE Ranitidine HCl 150 mg 10/08/18 22:00 10/13/18 21:54 Zantac - PO 150 mg BID HAILEE Administration Tramadol HCl 50 mg 10/09/18 19:10 Ultram - PO Q6H PRN PAIN LEVEL 1-5 ASSESSMENT/PLAN 68 year-old female with a PMH significant for complete heart block s/p PPM, COPD , esophageal stricture, ruptured gallbladder s/p cholecystosomy, metatstatic disease, and prolapsed uterus. Admitted for sepsis secondary to UTI. Now bacteremic. Severe sepsis secondary to E. coli UTI Klebsiella bacteremia --spiked fever last night to 101.5, wbc spike 16.6k, back to 9.5k today --re-cultured --10/08 Urine: E. coli sensitive to cephazolin --10/08 Blood x 2: Klebsiella sensitive to cephazolin --continue cefazolin (day #3) --ID following Pancreatic mass --CORRECTION: Diagnosis of pancreatic cancer made in previous notes not accurate. Patient had negative biopsy at [facility] 11/20/17, copy in chart Metastatic disease --09/12/18 CT: multiple hepatic masses consistent with metastatic disease; peripancreatic fluid and dilitation of pancreatic duct --10/13/[address]: hepatic masses again seen unchanged from August [address] of September 2017; development of ascites, subq edema; intrahepatic and extrahepatic biliary tract dilatation; biliary stent is seen; prominent dilatation of main panccreatic duct as seen previously; splenomegaly, possible neoplastic infiltration, no change from previous --uncertain primary source --liver biopsy when more stable --oncology following Main portal vein thrombus --seen on 10/02 US --continue therapeutic lovenox Biliary obstruction s/p CBD stenting Ruptured gallbladder --s/p cholecystostomy --s/p biliary stenting Esophageal stricture --s/p dilation 07/01/18, 08/21/18 --09/10/18 CTAP shows marked narrowing --Dr. Colindres following Anemia --transfused 1U PRBC on 10/11 with good response, Hgb 7.3--> 10.6 Mild COPD --not on home meds --duonebs PRN Prolapsed uterus, chronic --since 1982 --has to manipulate the uterus in order to urinate --patient did not tolerate pessary Heart block --s/p PPM --not on home cardiac meds --telemetry monitoring for now Diastolic heart failure --11/12/17 Echo ([facility]): LV systolic normal, EF 60-65%; LV impaired relaxation; RV normal; no significant valvular diease; mild pHTN --was given fluids overnight for fever, sepsis; mildly volume overloaded today, will give lasix IV 20mg x 1 Hyponatremia --improving Hypokalemia, hypomagnesemia, hypophosphatemia --resolved Severe malnutrition FEN Fluids: PO intake adequate Electrolytes: replete as indicated Nutrition: soft diet DVT prophylaxis: hold lovenox Sunday for possible biopsy on Sunday Dispo: continues to require inpatient care. Full code. PCP: Dr. Jacobs [phone] Visit type - Emergency Visit Emergency Visit: Yes ED Registration Date: 10/08/18 Care time: The patient presented to the Emergency Department on the above date and was hospitalized for further evaluation of their emergent condition. - New Patient This patient is new to me today: No - Critical Care Critical Care patient: Yes Total Critical Care Time (in minutes): 45 Critical Care Statement: The care of this patient involved high complexity decision making to prevent further life threatening deterioration of the patient 's condition and/or to evaluate & treat vital organ system(s) failure or risk of failure.
[2018-10-14] MEDS: POLYETHYLENE GLYCOL 3350 119 GM BTL PO SCH (10:34)
[2018-10-14] MEDS: RANITIDINE HCL 150 MG TABLET (FP) PO SCH ×2 (10:34→21:09)
[2018-10-14] MEDS: PANTOPRAZOLE 40 MG TABLET (FP) PO SCH (10:34)
[2018-10-14] MEDS ORDERED: FUROSEMIDE 40 MG/4 ML INJECTABLE VIAL IVPUSH ONE ×2 (16:00→17:45)
[2018-10-14] MEDS: IBUPROFEN 800 MG/8 ML IJ IVPB PRN (19:24)
[2018-10-14] MEDS: DOCUSATE SODIUM 100 MG CAPSULE (FP) PO SCH (21:09)
[2018-10-15] MEDS: CEFAZOLIN 2 GM/D5W 2 GM/50 ML ML IVPB SCH ×3 (01:41→16:59)
[2018-10-15 08:17] LABS: BASO % 0.1 % (0-2.0); EOS % 0.2 % (0-4.5); HEMATOCRIT 23.9 % (32.4-45.2); LYMPH % 12.1 % (8-40); MCH 28.8 pg (25.7-33.7); MCHC 33.3 g/dl (32.0-36.0); MEAN CELL VOLUME 86.3 fl (80-96); MEAN PLT VOLUME 10.6 fl (7.5-11.1); MONO % 2.3 % (3.8-10.2); NEUT % 85.3 % (42.8-82.8); PLATELET COUNT 186 K/MM3 (134-434); RBC 2.77 M/mm3 (3.60-5.2); RDW 17.1 % (11.6-15.6); WHITE BLOOD COUNT 12.4 K/mm3 (4.0-10.8)
[2018-10-15 08:23] LABS: ALBUMIN 1.3 g/dl (3.5-5.0); ALK PHOS 111 U/L (32-92); ANION GAP 3 MMOL/L (8-16); BILIRUBIN,TOTAL 0.6 mg/dl (0.2-1.0); BLOOD UREA NITROGEN 7 mg/dl (7-18); CALCIUM 7.2 mg/dl (8.4-10.2); CHLORIDE 101 mmol/L (98-107); CO2 26 mmol/L (22-28); GLUCOSE,RANDOM 86 mg/dl (74-106); MAGNESIUM 1.7 mg/dL (1.8-2.4); POTASSIUM 4.2 mmol/L (3.5-5.1); SGOT/AST 18 U/L (10-42); SODIUM 130 mmol/L (136-145); TOT PROT 4.2 g/dl (6.4-8.3)
[2018-10-15 08:27] LABS: CREATININE < 0.6 mg/dl (0.6-1.3); SGPT/ALT < 8 U/L (10-40)
[2018-10-15] MEDS: RANITIDINE HCL 150 MG TABLET (FP) PO SCH (09:41)
[2018-10-15] MEDS: PANTOPRAZOLE 40 MG TABLET (FP) PO SCH (09:41)
[2018-10-15] MEDS: POLYETHYLENE GLYCOL 3350 119 GM BTL PO SCH (09:41)
--- NOTE | 2018-10-15 12:45 | PN ---
Physical Exam: SUBJECTIVE: Patient seen and examined at bedside. No complaints. OBJECTIVE: Vital Signs Period Temp Pulse Resp BP Sys/Hartmann Pulse Ox Last 24 Hr 97.8 F-100.7 F 58-103 17-18 90-109/45-63 95-100 General: A&Ox3, in no acute distress Lungs: CTA CV: S1, S2, rrr Abd: soft, not tender, not distended Upper Ext: 2+ pulses, warm, well-perfused Lower Ext: 2+pulses, warm, well-perfused, 1+ bilateral edema, no calf tenderness Laboratory Results - last 24 hr 10/14/18 10/15/18 10/15/18 17:28 07:36 07:36 WBC 12.4 H RBC 2.77 L Hgb 8.0 L Hct 23.9 L MCV 86.3 MCH 28.8 MCHC 33.3 RDW 17.1 H Plt Count 186 MPV 10.6 Absolute Neuts (auto) 10.6 Neutrophils % 85.3 H Lymphocytes % 12.1 Monocytes % 2.3 L Eosinophils % 0.2 Basophils % 0.1 PTT (Actin FS) 27.4 Sodium 130 L Potassium 4.2 Chloride 101 Carbon Dioxide 26 Anion Gap 3 L BUN 7 Creatinine < 0.6 L Creat Clearance w eGFR > 60 Random Glucose 86 Calcium 7.2 L Magnesium 1.7 L Total Bilirubin 0.6 AST 18 ALT < 8 L D Alkaline Phosphatase 111 H D Total Protein 4.2 L Albumin 1.3 L Active Medications Generic Name Dose Route Start Last Admin Trade Name Freq PRN Reason Stop Dose Admin Docusate Sodium 300 mg 10/08/18 22:00 10/14/18 21:09 Colace - PO Not Given HS HAILEE Cefazolin Sodium/Dextrose 2 gm in 50 mls @ 100 mls/hr 10/11/18 10:00 09:41 Ancef 2 Gm Premixed Ivpb - IVPB 100 mls/hr Q8H-IV HAILEE Administration Ibuprofen 800 mg 10/13/18 17:22 10/14/18 19:24 Caldolor Injection - IVPB 800 mg Q6H PRN Administration FEVER Oxycodone HCl 5 mg 10/09/18 19:09 10/13/18 14:39 Roxicodone - PO 5 mg Q4H PRN Administration PAIN LEVEL 6-10 Pantoprazole Sodium 40 mg 10/09/18 19:15 10/15/18 09:41 Protonix - PO 40 mg DAILY HAILEE Administration Polyethylene Glycol 17 gm 10/09/18 10:00 10/15/18 09:41 Miralax (For Daily Use) - PO Not Given DAILY HAILEE Ranitidine HCl 150 mg 10/08/18 22:00 10/15/18 09:41 Zantac - PO 150 mg BID HAILEE Administration Tramadol HCl 50 mg 10/09/18 19:10 Ultram - PO Q6H PRN PAIN LEVEL 1-5 ASSESSMENT/PLAN: 68 year-old female with a PMH significant for complete heart block s/p PPM, COPD , esophageal stricture, ruptured gallbladder s/p cholecystosomy, metatstatic disease, and prolapsed uterus. Admitted for sepsis secondary to UTI. Now bacteremic. Severe sepsis secondary to E. coli UTI Klebsiella bacteremia --spiked fever for second time in past 48 hours and re-elevation of WBC --10/08 Urine: E. coli sensitive to cephazolin --10/08 Blood x 2: Klebsiella sensitive to cephazolin --10/12 Blood x 2: NGTD --10/14 Urine: pending --continue cefazolin (day #4) --will get echo --ID following Pancreatic mass --CORRECTION: Diagnosis of pancreatic cancer made in previous notes not accurate. Patient had negative biopsy at [facility] 11/20/17, copy in chart Metastatic disease --09/12/18 CT: multiple hepatic masses consistent with metastatic disease; peripancreatic fluid and dilitation of pancreatic duct --10/13/[address]: hepatic masses again seen unchanged from August [address] of September 2017; development of ascites, subq edema; intrahepatic and extrahepatic biliary tract dilatation; biliary stent is seen; prominent dilatation of main panccreatic duct as seen previously; splenomegaly, possible neoplastic infiltration, no change from previous --uncertain primary source --liver biopsy when more stable --oncology following Main portal vein thrombus --seen on 10/02 US --continue therapeutic lovenox Biliary obstruction s/p CBD stenting Ruptured gallbladder --s/p cholecystostomy --s/p biliary stenting Esophageal stricture --s/p dilation 07/01/18, 08/21/18 --09/10/18 CTAP shows marked narrowing --Dr. Colindres following Anemia --transfused 1U PRBC on 10/11 --h/h stable Mild COPD --not on home meds --duonebs PRN Prolapsed uterus, chronic --since 1982 --has to manipulate the uterus in order to urinate --patient did not tolerate pessary Heart block --s/p [employer] PPM Serial #[id number] implanted 12/14/17 Dr. Frederick Malloy, [facility] --not on home cardiac meds Diastolic heart failure --11/12/17 Echo ([facility]): LV systolic normal, EF 60-65%; LV impaired relaxation; RV normal; no significant valvular diease; mild pHTN --10/13 CT: development of small b/l pleural effusions, small pericardial effusion, subq edema --will defer starting standing diuretics in view of recurring sepsis; lasix PRN Hyponatremia --improved Hypomagnesemia --resolved Severe malnutrition FEN Fluids: PO intake adequate Electrolytes: replete as indicated Nutrition: soft diet DVT prophylaxis: therapeutic dose lovenox Dispo: continues to require inpatient care. Full code. Lengthy discussion with patient, daughter Naomi and son Deniz (by phone). Patient reaffirmed she is a full code. She has a scheduled appointment with Dr. Urrutia on 10/31 to pursue oncology workup. Visit type - Emergency Visit Emergency Visit: Yes ED Registration Date: 10/08/18 Care time: The patient presented to the Emergency Department on the above date and was hospitalized for further evaluation of their emergent condition. - New Patient This patient is new to me today: No - Critical Care Critical Care patient: Yes Total Critical Care Time (in minutes): 90 Critical Care Statement: The care of this patient involved high complexity decision making to prevent further life threatening deterioration of the patient 's condition and/or to evaluate & treat vital organ system(s) failure or risk of failure.
[2018-10-15] MEDS ORDERED: SODIUM CHLORIDE 250 ML IV STA (13:56)
[2018-10-15] MEDS: oxyCODONE HCL 5 MG TABLET PO PRN (14:47)
[2018-10-15] MEDS: ENOXAPARIN NA (PORCINE) 40 MG/0.4 ML DISP.SYRIN SQ SCH (16:58)
[2018-10-15] MEDS: DOCUSATE SODIUM 100 MG CAPSULE (FP) PO SCH (22:33)
[2018-10-16] MEDS: CEFAZOLIN 2 GM/D5W 2 GM/50 ML ML IVPB SCH ×3 (01:52→18:31)
[2018-10-16 08:50] LABS: ALBUMIN 1.4 g/dl (3.5-5.0); ALK PHOS 108 U/L (32-92); ANION GAP 3 MMOL/L (8-16); BILIRUBIN,TOTAL 0.6 mg/dl (0.2-1.0); BLOOD UREA NITROGEN 9 mg/dl (7-18); CALCIUM 7.3 mg/dl (8.4-10.2); CHLORIDE 101 mmol/L (98-107); CO2 26 mmol/L (22-28); CREATININE 0.4 mg/dl (0.6-1.3); GLUCOSE,RANDOM 81 mg/dl (74-106); MAGNESIUM 1.8 mg/dL (1.8-2.4); PHOSPHOROUS 2.7 mg/dl (2.5-4.6); POTASSIUM 3.7 mmol/L (3.5-5.1); SGOT/AST 18 U/L (10-42); SODIUM 130 mmol/L (136-145); TOT PROT 4.5 g/dl (6.4-8.3)
[2018-10-16 08:53] LABS: SGPT/ALT < 8 U/L (10-40)
[2018-10-16 09:03] LABS: HEMOGLOBIN 8.4 GM/dl (10.7-15.3)
[2018-10-16 09:10] LABS: HEMATOCRIT 24.8 % (32.4-45.2); MCH 29.5 pg (25.7-33.7); MEAN CELL VOLUME 86.6 fl (80-96); MEAN PLT VOLUME 9.4 fl (7.5-11.1); PLATELET COUNT 93 K/MM3 (134-434); RBC 2.87 M/mm3 (3.60-5.2); RDW 16.6 % (11.6-15.6); WHITE BLOOD COUNT 9.8 K/mm3 (4.0-10.8)
[2018-10-16 09:19] LABS: ADD RBC MORPHOLOGY YES
[2018-10-16 09:54] LABS: ANISOCYTOSIS FEW; PLATELET ESTIMATE DECREASED
[2018-10-16] MEDS: ENOXAPARIN NA (PORCINE) 40 MG/0.4 ML DISP.SYRIN SQ SCH (10:06)
[2018-10-16] MEDS: POLYETHYLENE GLYCOL 3350 119 GM BTL PO SCH (10:06)
[2018-10-16] MEDS: PANTOPRAZOLE 40 MG TABLET (FP) PO SCH (10:07)
[2018-10-16] MEDS: oxyCODONE HCL 5 MG TABLET PO PRN (10:07)
--- NOTE | 2018-10-16 14:42 | ECHO ---
Name: GEOVANNA VALDOVINOS Exam:Adult Echocardiogram Study Date: 10/16/2018 10:59 AM Age: 68 yrs Reason For Study: WEAKNESS COPD Height: 61 in Weight: 88 lb BSA: 1.3 m2 MMode/2D Measurements & Calculations IVSd: 0.84 cm Ao root diam: 2.5 cm LVIDd: 4.2 cm LA dimension: 3.2 cm LVIDs: 2.4 cm LVPWd: 0.77 cm EDV(Teich): 76.6 ml ESV(Teich): 19.8 ml Doppler Measurements & Calculations MV E max maurizio: 63.6 cm/sec MV A max maurizio: 70.2 cm/sec MV dec slope: 289.3 cm/sec2 MV E/A: 0.91 TR max maurizio: 267.6 cm/sec TR max P.8 mmHg Procedure A two-dimensional transthoracic echocardiogram with color flow and Doppler was performed. Left Ventricle The left ventricular size, thickness and function are normal. The left ventricular ejection fraction is normal. E/A reversal consistent with but not diagnostic of poor LV compliance. The left ventricular w all motion is normal. Right Ventricle The right ventricle is normal in size and function. Atria Normal left and right atrial size and function. Mitral Valve There is mild mitral valve thickening. There is no mitral valve stenosis. There is mild mitral regurg itation. Tricuspid Valve There is mild tricuspid valve thickening. There is no tricuspid stenosis. There is moderate to severe tricuspid regurgitation. Right ventricular systolic pressure is elevated at 30-40mmHg. Aortic Valve The aortic valve is normal in structure and function. No hemodynamically significant valvular aortic stenosis. No aortic regurgitation is present. Pulmonic Valve The pulmonic valve is not well visualized. Great Vessels The aortic root is normal size. Pericardium/Pleura There is no pericardial effusion. Interpretation Summary The left ventricular size, thickness and function are normal The left ventricular ejection fraction is normal. The left ventricular wall motion is normal. There is moderate to severe tricuspid regurgitation. Right ventricular systolic pressure is elevated at 30-40mmHg. E/A reversal consistent with but not diagnostic of poor LV compliance There is mild mitral regurgitation. MD Kanu Bolanos 10/16/2018 02:41 PM
--- NOTE | 2018-10-16 14:54 | PN ---
Physical Exam: SUBJECTIVE: Patient seen and examined OBJECTIVE: Vital Signs Period Temp Pulse Resp BP Sys/Hartmann Pulse Ox Last 24 Hr 97.9 F-98.8 F 65-84 16-18 89-103/36-58 97-99 General: A&Ox3, in no acute distress Lungs: CTA CV: S1, S2, rrr Abd: soft, not tender, not distended Upper Ext: 2+ pulses, warm, well-perfused Lower Ext: 2+pulses, warm, well-perfused, 1+ bilateral edema, no calf tenderness Laboratory Results - last 24 hr 10/16/18 10/16/18 07:52 07:52 WBC 9.8 RBC 2.87 L Hgb 8.4 L Hct 24.8 L MCV 86.6 MCH 29.5 MCHC 34.0 RDW 16.6 H Plt Count 93 L MPV 9.4 Absolute Neuts (auto) 8.7 Neutrophils % No Result Required. Neutrophils % (Manual) 93.0 H* Lymphocytes % No Result Required. Lymphocytes % (Manual) 5.0 L Monocytes % (Manual) 2 L Platelet Estimate Decreased Platelet Comment Few plt clump Anisocytosis Few Sodium 130 L Potassium 3.7 Chloride 101 Carbon Dioxide 26 Anion Gap 3 L BUN 9 Creatinine 0.4 L Creat Clearance w eGFR > 60 Random Glucose 81 Calcium 7.3 L Phosphorus 2.7 Magnesium 1.8 Total Bilirubin 0.6 AST 18 ALT < 8 L Alkaline Phosphatase 108 H Total Protein 4.5 L Albumin 1.4 L Active Medications Generic Name Dose Route Start Last Admin Trade Name Freq PRN Reason Stop Dose Admin Docusate Sodium 300 mg 10/08/18 22:00 10/15/18 22:33 Colace - PO 300 mg HS HAILEE Administration Cefazolin Sodium/Dextrose 2 gm in 50 mls @ 100 mls/hr 10/11/18 10:00 10:05 Ancef 2 Gm Premixed Ivpb - IVPB 100 mls/hr Q8H-IV HAILEE Administration Ibuprofen 800 mg 10/13/18 17:22 10/14/18 19:24 Caldolor Injection - IVPB 800 mg Q6H PRN Administration FEVER Oxycodone HCl 5 mg 10/09/18 19:09 10/16/18 10:07 Roxicodone - PO 5 mg Q4H PRN Administration PAIN LEVEL 6-10 Pantoprazole Sodium 40 mg 10/09/18 19:15 10/16/18 10:07 Protonix - PO 40 mg DAILY HAILEE Administration Polyethylene Glycol 17 gm 10/09/18 10:00 10/16/18 10:06 Miralax (For Daily Use) - PO 17 gm DAILY HAILEE Administration Tramadol HCl 50 mg 10/09/18 19:10 Ultram - PO Q6H PRN PAIN LEVEL 1-5 ASSESSMENT/PLAN: 68 year-old female with a PMH significant for complete heart block s/p PPM, COPD , esophageal stricture, ruptured gallbladder s/p cholecystosomy, metatstatic disease, and prolapsed uterus. Admitted for sepsis secondary to UTI. Now bacteremic. Severe sepsis secondary to E. coli UTI Klebsiella bacteremia --has been afebrile for 48 hours, WBC trended to wnl --10/08 Urine: E. coli sensitive to cephazolin; repeat urine on 10/14 negative --10/08 Blood x 2: Klebsiella sensitive to cephazolin; repeat blood on 10/12 NGTD --Echo: no sign of vegetation --continue cefazolin (day #5) --ID following Pancreatic mass --CORRECTION: Diagnosis of pancreatic cancer made in previous notes not accurate. Patient had negative biopsy at [facility] 11/20/17, copy in chart Metastatic disease --09/12/18 CT: multiple hepatic masses consistent with metastatic disease; peripancreatic fluid and dilitation of pancreatic duct --10/13/[address]: hepatic masses again seen unchanged from August 2018 but increased [address] of September 2017; development of ascites, subq edema; intrahepatic and extrahepatic biliary tract dilatation; biliary stent is seen; prominent dilatation of main panccreatic duct as seen previously; splenomegaly, possible neoplastic infiltration, no change from previous --uncertain primary source --liver biopsy when more stable --oncology following Thrombocytopenia --platelets have been trending down since 10/12, significant drop today to 93k --has been on lovenox for portal vein thrombus, platelets started to drop at around day #5 of lovenox --discussed with Dr. Urrutia, stop lovenox --HIT antibodies and serotonin assay collected and sent Main portal vein thrombus --seen on 10/02 US --stop lovenox due to thrombocytopenia Biliary obstruction s/p CBD stenting Ruptured gallbladder --s/p cholecystostomy --s/p biliary stenting Esophageal stricture --s/p dilation 07/01/18, 08/21/18 --09/10/18 CTAP shows marked narrowing --Dr. Colindres following Anemia --transfused 1U PRBC on 10/11 --h/h stable Mild COPD --not on home meds --duonebs PRN Prolapsed uterus, chronic --since 1982 --has to manipulate the uterus in order to urinate --patient did not tolerate pessary Heart block --s/p [employer] PPM Serial #[id number] implanted 12/14/17 Dr. Frederick Malloy, [facility] --not on home cardiac meds Diastolic heart failure --11/12/17 Echo ([facility]): LV systolic normal, EF 60-65%; LV impaired relaxation; RV normal; no significant valvular diease; mild pHTN --10/13 CT: development of small b/l pleural effusions, small pericardial effusion, subq edema --will defer starting standing diuretics in view of recurring sepsis; lasix PRN Hyponatremia --improved Hypomagnesemia --resolved Severe malnutrition FEN Fluids: PO intake adequate Electrolytes: replete as indicated Nutrition: soft diet DVT prophylaxis: therapeutic dose lovenox Dispo: continues to require inpatient care. Full code. Patient has a scheduled appointment with Dr. Urrutia on 10/31 to pursue oncology workup. Echo: LV normal; RV normal; mild MR; moderate to severe TR; pHTN Visit type - Emergency Visit Emergency Visit: Yes ED Registration Date: 10/08/18 Care time: The patient presented to the Emergency Department on the above date and was hospitalized for further evaluation of their emergent condition. - New Patient This patient is new to me today: No - Critical Care Critical Care patient: Yes Total Critical Care Time (in minutes): 45 Critical Care Statement: The care of this patient involved high complexity decision making to prevent further life threatening deterioration of the patient 's condition and/or to evaluate & treat vital organ system(s) failure or risk of failure.
[2018-10-16 18:10] LABS: HEMATOCRIT 26.3 % (32.4-45.2); HEMOGLOBIN 8.4 GM/dl (10.7-15.3); MCH 27.3 pg (25.7-33.7); MCHC 31.9 g/dl (32.0-36.0); MEAN CELL VOLUME 85.6 fl (80-96); MEAN PLT VOLUME 9.1 fl (7.5-11.1); PLATELET COUNT 109 K/MM3 (134-434); RBC 3.07 M/mm3 (3.60-5.2); RDW 16.9 % (11.6-15.6); WHITE BLOOD COUNT 13.4 K/mm3 (4.0-10.8)
--- NOTE | 2018-10-16 21:34 | PN ---
Progress Note (short form) - Note Progress Note: Pt notes feeling somewhat better w inc appetite Appears to have defervesced PE non-toxic eating dinner lungs-CTA CVS- reg S1S2 abd-soft ext-bilat swelling LE L>R Imp: met process, suspect panc primary e coli uti, kleb bacteremia, folld by ID, known to Dr Colindres plan is for liver bx once stable/infxn cleared has dec plt count in setting of malig, abx use, infxn, lovenox, and few plt clumps noted. Started lovenox for PVT. Since HIT in differential, would d/c lovenox, repeat cbc in green top tube, monitor plts, obtain LE duplex, await HIT Ab/ZOEY. d/w team
[2018-10-16] MEDS: IBUPROFEN 800 MG/8 ML IJ IVPB PRN (21:37)
[2018-10-16] MEDS: DOCUSATE SODIUM 100 MG CAPSULE (FP) PO SCH (21:38)
[2018-10-17] MEDS: CEFAZOLIN 2 GM/D5W 2 GM/50 ML ML IVPB SCH ×3 (01:27→18:19)
[2018-10-17] MEDS: oxyCODONE HCL 5 MG TABLET PO PRN ×2 (09:39→18:19)
[2018-10-17] MEDS: PANTOPRAZOLE 40 MG TABLET (FP) PO SCH (09:40)
[2018-10-17] MEDS: POLYETHYLENE GLYCOL 3350 119 GM BTL PO SCH (09:40)
--- NOTE | 2018-10-17 14:54 | PN ---
Physical Exam: SUBJECTIVE: Patient seen and examined sitting on edge of bed. No complaints. OBJECTIVE: Vital Signs Period Temp Pulse Resp BP Sys/Hartmann Pulse Ox Last 24 Hr 98.5 F-100.5 F 64-102 18-19 92-110/44-55 98-100 General: A&Ox3, in no acute distress Lungs: CTA CV: S1, S2, rrr Abd: soft, not tender, not distended Upper Ext: 2+ pulses, warm, well-perfused Lower Ext: 2+pulses, warm, well-perfused, 1+ bilateral edema, no calf tenderness Laboratory Results - last 24 hr 10/16/18 17:50 WBC 13.4 H RBC 3.07 L Hgb 8.4 L Hct 26.3 L MCV 85.6 MCH 27.3 MCHC 31.9 L RDW 16.9 H Plt Count 109 L MPV 9.1 Neutrophils % No Result Required. Lymphocytes % No Result Required. Active Medications Generic Name Dose Route Start Last Admin Trade Name Freq PRN Reason Stop Dose Admin Docusate Sodium 300 mg 10/08/18 22:00 10/16/18 21:38 Colace - PO 300 mg HS HAILEE Administration Cefazolin Sodium/Dextrose 2 gm in 50 mls @ 100 mls/hr 10/11/18 10:00 09:40 Ancef 2 Gm Premixed Ivpb - IVPB 100 mls/hr Q8H-IV HAILEE Administration Ibuprofen 800 mg 10/13/18 17:22 10/16/18 21:37 Caldolor Injection - IVPB 800 mg Q6H PRN Administration FEVER Oxycodone HCl 5 mg 10/09/18 19:09 10/17/18 09:39 Roxicodone - PO 5 mg Q4H PRN Administration PAIN LEVEL 6-10 Pantoprazole Sodium 40 mg 10/09/18 19:15 10/17/18 09:40 Protonix - PO 40 mg DAILY HAILEE Administration Polyethylene Glycol 17 gm 10/09/18 10:00 10/17/18 09:40 Miralax (For Daily Use) - PO 17 gm DAILY HAILEE Administration Tramadol HCl 50 mg 10/09/18 19:10 Ultram - PO Q6H PRN PAIN LEVEL 1-5 ASSESSMENT/PLAN 68 year-old female with a PMH significant for complete heart block s/p PPM, COPD , esophageal stricture, ruptured gallbladder s/p cholecystosomy, metatstatic disease, and prolapsed uterus. Admitted for sepsis secondary to UTI. Now bacteremic. Severe sepsis secondary to E. coli UTI Klebsiella bacteremia --low grade fever 100.4, WBC bump 11.6k; has been spiking intermittent fevers over past 4 days --10/08 Urine: E. coli sensitive to cephazolin; repeat urine on 10/14 negative --10/08 Blood x 2: Klebsiella sensitive to cephazolin; repeat blood on 10/12 NGTD --Echo: no sign of vegetation --continue cefazolin (day #6) --ID following Pancreatic mass --CORRECTION: Diagnosis of pancreatic cancer made in previous notes not accurate. Patient had negative biopsy at [facility] 11/20/17, copy in chart Metastatic disease --09/12/18 CT: multiple hepatic masses consistent with metastatic disease; peripancreatic fluid and dilitation of pancreatic duct --10/13/[address]: hepatic masses again seen unchanged from August [address] of September 2017; development of ascites, subq edema; intrahepatic and extrahepatic biliary tract dilatation; biliary stent is seen; prominent dilatation of main panccreatic duct as seen previously; splenomegaly, possible neoplastic infiltration, no change from previous --uncertain primary source --liver biopsy when more stable --oncology following Thrombocytopenia --platelets have been trending down since 10/12, significant drop today to 93k --has been on lovenox for portal vein thrombus, platelets started to drop at around day #5 of lovenox --discussed with Dr. Urrutia, stop lovenox --HIT antibodies and serotonin assay collected and sent Main portal vein thrombus --seen on 10/02 US --stop lovenox due to thrombocytopenia Biliary obstruction s/p CBD stenting Ruptured gallbladder --s/p cholecystostomy --s/p biliary stenting Esophageal stricture --s/p dilation 07/01/18, 08/21/18 --09/10/18 CTAP shows marked narrowing --Dr. Colindres following Anemia --transfused 1U PRBC on 10/11 --h/h stable Mild COPD --not on home meds --duonebs PRN Prolapsed uterus, chronic --since 1982 --has to manipulate the uterus in order to urinate --patient did not tolerate pessary Heart block --s/p [employer] PPM Serial #[id number] implanted 12/14/17 Dr. Frederick Malloy, [facility] --not on home cardiac meds Diastolic heart failure --11/12/17 Echo ([facility]): LV systolic normal, EF 60-65%; LV impaired relaxation; RV normal; no significant valvular diease; mild pHTN --10/13 CT: development of small b/l pleural effusions, small pericardial effusion, subq edema --lasix PRN Hyponatremia --improved Hypomagnesemia --resolved Severe malnutrition FEN Fluids: PO intake adequate Electrolytes: replete as indicated Nutrition: soft diet DVT prophylaxis: SCDs, TEDs, oob, ambulation Dispo: continues to require inpatient care. Full code. Patient has a scheduled appointment with Dr. Urrutia on 10/31 to pursue oncology workup. Echo: LV normal; RV normal; mild MR; moderate to severe TR; pHTN Visit type Visit type - Emergency Visit Emergency Visit: Yes ED Registration Date: 10/08/18 Care time: The patient presented to the Emergency Department on the above date and was hospitalized for further evaluation of their emergent condition. - New Patient This patient is new to me today: No - Critical Care Critical Care patient: No
[2018-10-17] MEDS: DOCUSATE SODIUM 100 MG CAPSULE (FP) PO SCH (21:35)
[2018-10-18] MEDS: CEFAZOLIN 2 GM/D5W 2 GM/50 ML ML IVPB SCH ×3 (01:23→18:56)
[2018-10-18 08:33] LABS: EOS % 0.8 % (0-4.5); HEMATOCRIT 25.5 % (32.4-45.2); HEMOGLOBIN 8.3 GM/dl (10.7-15.3); MCH 28.2 pg (25.7-33.7); MCHC 32.3 g/dl (32.0-36.0); MEAN CELL VOLUME 87.4 fl (80-96); MEAN PLT VOLUME 11.5 fl (7.5-11.1); MONO % 6.6 % (3.8-10.2); NEUT % 79.6 % (42.8-82.8); PLATELET COUNT 178 K/MM3 (134-434); RBC 2.92 M/mm3 (3.60-5.2); RDW 16.5 % (11.6-15.6); WHITE BLOOD COUNT 8.1 K/mm3 (4.0-10.8)
[2018-10-18] MEDS: POLYETHYLENE GLYCOL 3350 119 GM BTL PO SCH (09:38)
[2018-10-18] MEDS: PANTOPRAZOLE 40 MG TABLET (FP) PO SCH (09:39)
[2018-10-18 10:15] LABS: ALBUMIN 1.3 g/dl (3.5-5.0); ALK PHOS 104 U/L (32-92); ANION GAP 6 MMOL/L (8-16); BILIRUBIN,TOTAL 0.7 mg/dl (0.2-1.0); BLOOD UREA NITROGEN 8 mg/dl (7-18); CALCIUM 7.4 mg/dl (8.4-10.2); CHLORIDE 99 mmol/L (98-107); CO2 25 mmol/L (22-28); GLUCOSE,RANDOM 73 mg/dl (74-106); MAGNESIUM 1.7 mg/dL (1.8-2.4); PHOSPHOROUS 3.1 mg/dl (2.5-4.6); POTASSIUM 4.2 mmol/L (3.5-5.1); SGOT/AST 13 U/L (10-42); SGPT/ALT 4 U/L (10-40); SODIUM 130 mmol/L (136-145); TOT PROT 4.5 g/dl (6.4-8.3)
[2018-10-18 10:18] LABS: CREATININE < 0.6 mg/dl (0.6-1.3)
--- NOTE | 2018-10-18 14:07 | PN ---
Physical Exam: SUBJECTIVE: Patient seen and examined at bedside. Appetite improved. Sisters present. OBJECTIVE: Vital Signs Period Temp Pulse Resp BP Sys/Hartmann Pulse Ox Last 24 Hr 98.0 F-98.9 F 70-84 16-18 100-121/43-66 96-99 General: A&Ox3, in no acute distress Lungs: CTA CV: S1, S2, rrr Abd: soft, not tender, not distended Upper Ext: 2+ pulses, warm, well-perfused Lower Ext: 2+pulses, warm, well-perfused, 1+ bilateral edema, no calf tenderness Laboratory Results - last 24 hr 10/18/18 10/18/18 07:00 07:00 WBC 8.1 RBC 2.92 L Hgb 8.3 L Hct 25.5 L MCV 87.4 MCH 28.2 MCHC 32.3 RDW 16.5 H Plt Count 178 MPV 11.5 H Absolute Neuts (auto) 6.4 Neutrophils % 79.6 Lymphocytes % 13.0 Monocytes % 6.6 Eosinophils % 0.8 Basophils % 0.0 Sodium 130 L Potassium 4.2 Chloride 99 Carbon Dioxide 25 Anion Gap 6 L BUN 8 Creatinine < 0.6 L Creat Clearance w eGFR > 60 Random Glucose 73 L Calcium 7.4 L Phosphorus 3.1 Magnesium 1.7 L Total Bilirubin 0.7 AST 13 D ALT 4 L D Alkaline Phosphatase 104 H Total Protein 4.5 L Albumin 1.3 L Active Medications Generic Name Dose Route Start Last Admin Trade Name Freq PRN Reason Stop Dose Admin Docusate Sodium 300 mg 10/08/18 22:00 10/17/18 21:35 Colace - PO 300 mg HS HAILEE Administration Cefazolin Sodium/Dextrose 2 gm in 50 mls @ 100 mls/hr 10/11/18 10:00 09:38 Ancef 2 Gm Premixed Ivpb - IVPB 100 mls/hr Q8H-IV HAILEE Administration Ibuprofen 800 mg 10/13/18 17:22 10/16/18 21:37 Caldolor Injection - IVPB 800 mg Q6H PRN Administration FEVER Oxycodone HCl 5 mg 10/09/18 19:09 10/17/18 18:19 Roxicodone - PO 5 mg Q4H PRN Administration PAIN LEVEL 6-10 Pantoprazole Sodium 40 mg 10/09/18 19:15 10/18/18 09:39 Protonix - PO 40 mg DAILY HAILEE Administration Polyethylene Glycol 17 gm 10/09/18 10:00 10/18/18 09:38 Miralax (For Daily Use) - PO 17 gm DAILY HAILEE Administration Tramadol HCl 50 mg 10/09/18 19:10 Ultram - PO Q6H PRN PAIN LEVEL 1-5 ASSESSMENT/PLAN 68 year-old female with a PMH significant for complete heart block s/p PPM, COPD , esophageal stricture, ruptured gallbladder s/p cholecystosomy, metatstatic disease, and prolapsed uterus. Admitted for sepsis secondary to UTI. Now bacteremic. Severe sepsis secondary to E. coli UTI Klebsiella bacteremia --afebrile 24 hours, WBC wnl; had been spiking intermittent fevers --10/08 Urine: E. coli sensitive to cephazolin; repeat urine on 10/14 negative --10/08 Blood x 2: Klebsiella sensitive to cephazolin; repeat blood on 10/12 NGTD --Echo: no sign of vegetation --continue cefazolin (day #7) --ID following Pancreatic mass --CORRECTION: Diagnosis of pancreatic cancer made in previous notes not accurate. Patient had negative biopsy at [facility] 11/20/17, copy in chart Metastatic disease --09/12/18 CT: multiple hepatic masses consistent with metastatic disease; peripancreatic fluid and dilitation of pancreatic duct --10/13/[address]: hepatic masses again seen unchanged from August [address] of September 2017; development of ascites, subq edema; intrahepatic and extrahepatic biliary tract dilatation; biliary stent is seen; prominent dilatation of main panccreatic duct as seen previously; splenomegaly, possible neoplastic infiltration, no change from previous --uncertain primary source --liver biopsy when more stable --oncology following Thrombocytopenia --platelets have returned to wnl off lovenox; HIT panel and serotonin assay pending --discussed today with Dr. Urrutia, will continue to hold lovenox Main portal vein thrombus --seen on 10/02 --stop lovenox due to thrombocytopenia --discussed with Dr. Urrutia, whether to continue anti-coagulation is +/-; will discharge to home off anti-coagulation Biliary obstruction s/p CBD stenting Ruptured gallbladder --s/p cholecystostomy --s/p biliary stenting Esophageal stricture --s/p dilation 8/6/18, 08/21/18 --09/10/18 CTAP shows marked narrowing --Dr. Colindres following Anemia --transfused 1U PRBC on 10/11 --h/h stable Mild COPD --not on home meds --duonebs PRN Prolapsed uterus, chronic --since 1982 --has to manipulate the uterus in order to urinate --patient did not tolerate pessary Heart block --s/p [employer] PPM Serial #[id number] implanted 12/14/17 Dr. Frederick Malloy, [facility] --not on home cardiac meds Diastolic heart failure --11/12/17 Echo ([facility]): LV systolic normal, EF 60-65%; LV impaired relaxation; RV normal; no significant valvular disease; mild pHTN --10/13 CT: development of small b/l pleural effusions, small pericardial effusion, subq edema --lasix PRN Hyponatremia --chronic Severe malnutrition FEN Fluids: PO intake adequate Electrolytes: replete as indicated Nutrition: soft diet DVT prophylaxis: SCDs, TEDs, oob, ambulation Dispo: continues to require inpatient care. Full code. Patient has a scheduled appointment with Dr. Urrutia on 10/31 to pursue oncology workup. Visit type - Emergency Visit Emergency Visit: Yes ED Registration Date: 10/08/18 Care time: The patient presented to the Emergency Department on the above date and was hospitalized for further evaluation of their emergent condition. - New Patient This patient is new to me today: No - Critical Care Critical Care patient: No
[2018-10-18] MEDS: DOCUSATE SODIUM 100 MG CAPSULE (FP) PO SCH ×2 (21:40→21:42)
[2018-10-19] MEDS: CEFAZOLIN 2 GM/D5W 2 GM/50 ML ML IVPB SCH ×2 (03:03→09:26)
[2018-10-19 05:48] VITALS: BP 104/57; PULSE 78; TEMP 97.9
[2018-10-19] MEDS: POLYETHYLENE GLYCOL 3350 119 GM BTL PO SCH (09:25)
[2018-10-19] MEDS: PANTOPRAZOLE 40 MG TABLET (FP) PO SCH (09:26)
--- NOTE | 2018-10-19 11:50 | DS ---
Physical Exam: SUBJECTIVE: Patient seen and examined OBJECTIVE: Vital Signs Period Temp Pulse Resp BP Sys/Hartmann Pulse Ox Last 24 Hr 97.9 F-100.6 F 77-106 16-18 95-106/41-57 95-99 PHYSICAL EXAM General: A&Ox3, in no acute distress Lungs: CTA CV: S1, S2, rrr Abd: soft, not tender, not distended Upper Ext: 2+ pulses, warm, well-perfused Lower Ext: 2+pulses, warm, well-perfused, 1+ bilateral edema, no calf tenderness LABS CBCD WBC 8.1 K/mm3 (4.0-10.8) 10/18/18 07:00 RBC 2.92 M/mm3 (3.60-5.2) L 10/18/18 07:00 Hgb 8.3 GM/dl (10.7-15.3) L 10/18/18 07:00 Hct 25.5 % (32.4-45.2) L 10/18/18 07:00 MCV 87.4 fl (80-96) 10/18/18 07:00 MCHC 32.3 g/dl (32.0-36.0) 10/18/18 07:00 RDW 16.5 % (11.6-15.6) H 10/18/18 07:00 Plt Count 178 K/MM3 (134-434) 10/18/18 07:00 MPV 11.5 fl (7.5-11.1) H 10/18/18 07:00 CMP Sodium 130 mmol/L (136-145) L 10/18/18 07:00 Potassium 4.2 mmol/L (3.5-5.1) 10/18/18 07:00 Chloride 99 mmol/L (98-107) 10/18/18 07:00 Carbon Dioxide 25 mmol/L (22-28) 10/18/18 07:00 Anion Gap 6 MMOL/L (8-16) L 10/18/18 07:00 BUN 8 mg/dl (7-18) 10/18/18 07:00 Creatinine < 0.6 mg/dl (0.6-1.3) L 10/18/18 07:00 Creat Clearance w eGFR > 60 (>60) 10/18/18 07:00 Calcium 7.4 mg/dl (8.4-10.2) L 10/18/18 07:00 Total Bilirubin 0.7 mg/dl (0.2-1.0) 10/18/18 07:00 AST 13 U/L (10-42) D 10/18/18 07:00 ALT 4 U/L (10-40) L D 10/18/18 07:00 Alkaline Phosphatase 104 U/L (32-92) H 10/18/18 07:00 Total Protein 4.5 g/dl (6.4-8.3) L 10/18/18 07:00 Albumin 1.3 g/dl (3.5-5.0) L 10/18/18 07:00 HOSPITAL COURSE: Date of Admission:10/08/18 Date of Discharge: 10/19/18 68 year-old female with a PMH significant for complete heart block s/p PPM, COPD , esophageal stricture, ruptured gallbladder s/p cholecystosomy, metatstatic disease, and prolapsed uterus. Admitted for sepsis secondary to UTI. Now bacteremic. Severe sepsis secondary to E. coli UTI Klebsiella bacteremia --afebrile 24 hours, WBC wnl; had been spiking intermittent fevers --10/08 Urine: E. coli sensitive to cephazolin; repeat urine on 10/14 negative --10/08 Blood x 2: Klebsiella sensitive to cephazolin; repeat blood on 10/12 NGTD --Echo: no sign of vegetation --continue cefazolin (day #7) --ID following Pancreatic mass --CORRECTION: Diagnosis of pancreatic cancer made in previous notes not accurate. Patient had negative biopsy at [facility] 11/20/17, copy in chart Metastatic disease --09/12/18 CT: multiple hepatic masses consistent with metastatic disease; peripancreatic fluid and dilitation of pancreatic duct --10/13/[address]: hepatic masses again seen unchanged from August 2018 but increased [address] of September 2017; development of ascites, subq edema; intrahepatic and extrahepatic biliary tract dilatation; biliary stent is seen; prominent dilatation of main panccreatic duct as seen previously; splenomegaly, possible neoplastic infiltration, no change from previous --uncertain primary source --liver biopsy when more stable --oncology following Thrombocytopenia --platelets have returned to wnl off lovenox; HIT panel and serotonin assay pending --discussed today with Dr. Urrutia, will continue to hold lovenox Main portal vein thrombus --seen on 10/02 --stop lovenox due to thrombocytopenia --discussed with Dr. Urrutia, whether to continue anti-coagulation is +/-; will discharge to home off anti-coagulation Biliary obstruction s/p CBD stenting Ruptured gallbladder --s/p cholecystostomy --s/p biliary stenting Esophageal stricture --s/p dilation 07/01/18, 08/21/18 --09/10/18 CTAP shows marked narrowing --Dr. Colindres following Anemia --transfused 1U PRBC on 10/11 --h/h stable Mild COPD --not on home meds --duonebs PRN Prolapsed uterus, chronic --since 1982 --has to manipulate the uterus in order to urinate --patient did not tolerate pessary Heart block --s/p [employer] PPM Serial #[id number] implanted 12/14/17 Dr. Frederick Malloy, [facility] --not on home cardiac meds Diastolic heart failure --11/12/17 Echo ([facility]): LV systolic normal, EF 60-65%; LV impaired relaxation; RV normal; no significant valvular disease; mild pHTN --10/13 CT: development of small b/l pleural effusions, small pericardial effusion, subq edema --lasix PRN Hyponatremia --chronic Severe malnutrition Minutes to complete discharge: 35 Discharge Summary Reason For Visit: HYPOKALEMIA/UTI Current Active Problems Hypokalemia (Acute) Hypomagnesemia (Acute) Hyponatremia (Acute) Portal vein thrombosis (Acute) UTI (urinary tract infection) (Acute) Condition: Stable - Instructions Diet, Activity, Other Instructions: Two prescriptions have been sent to your pharmacy. One is for Keflex, an antibiotic. Be sure to FINISH all of this medication. The other prescription is for oxycodone, a pain medication, take as needed. You have an appointment with Dr. Devang Urrutia on October 31 at 12:30pm. Take ibuprofen/Motrin for fever. Return to the emergency department for any new or worsening symptoms. If you need to reach KARMA Horvath, call [phone] or [phone]. Referrals: Devang Urrutia MD [Staff Physician] - Disposition: HOME - Home Medications Comprehensive Discharge Medication List: Ambulatory Orders Lactobacillus Combination No.4 [Probiotic] 1 each PO BID 05/22/18 Ranitidine HCl [Zantac] 150 mg PO BID 07/01/18 Cephalexin [Keflex] 500 mg PO QID #20 capsule 10/19/18 oxyCODONE HCL [Roxicodone -] 5 mg PO Q6H PRN #20 tablet MDD 4 10/19/18 This patient is new to me today: No Emergency Visit: Yes ED Registration Date: 10/08/18 Care time: The patient presented to the Emergency Department on the above date and was hospitalized for further evaluation of their emergent condition. Critical Care patient: No - Discharge Referral Referred to [facility] No
== END 2018-10-19 13:16 | disposition home or self-care (01) | DRG 871 ==
LOC: FER 12:25 → FM/S 16:55 → OBSVTOIN 17:23
PROVIDERS: ADMIT Internal Medicine; ATTEND Nurse Practitioner Acute Care
DX: A41.50 Gram-negative sepsis, unspecified (principal); I81 Portal vein thrombosis; E43 Unspecified severe protein-calorie malnutrition; C78.7 Secondary malignant neoplasm of liver and intrahepatic bile duct; E87.1 Hypo-osmolality and hyponatremia; N39.0 Urinary tract infection, site not specified; Z68.1 Body mass index [BMI] 19.9 or less, adult; E87.2 Acidosis; R64 Cachexia; I50.30 Unspecified diastolic (congestive) heart failure; R65.20 Severe sepsis without septic shock; R16.1 Splenomegaly, not elsewhere classified; R13.10 Dysphagia, unspecified; E87.6 Hypokalemia; E83.42 Hypomagnesemia; K22.2 Esophageal obstruction; E80.6 Other disorders of bilirubin metabolism; D64.9 Anemia, unspecified; E88.09 Other disorders of plasma-protein metabolism, not elsewhere classified; J44.9 Chronic obstructive pulmonary disease, unspecified; I45.9 Conduction disorder, unspecified; I27.20 Pulmonary hypertension, unspecified; N81.4 Uterovaginal prolapse, unspecified; E83.39 Other disorders of phosphorus metabolism; D69.6 Thrombocytopenia, unspecified; R50.9 Fever, unspecified; Z95.0 Presence of cardiac pacemaker; Z87.891 Personal history of nicotine dependence
CPT/HCPCS: 36415; 36430; 71045-TC-FY; 71260-TC; 74177-TC; 80048; 80053; 81003; 81015; 82272; 82542; 82962; 83605; 83690; 83735; 84100; 84443; 84484; 85025; 85610; 85730; 86022; 86140; 86850; 86900; 86901; 86922; 87040; 87086; 87186; 93005; 93306-TC; 93970-TC; 97116-GP; 97161-GP; 99284-25; G0378; J7030; P9038; P9058

== ENCOUNTER 2018-10-28 09:34 | Inpatient (IN) | payer OTHER, MEDICARE ==
[2018-10-25 12:38] VITALS: BMI 16.0
[2018-10-28 10:06] LABS: BASO % 0.3 % (0-2.0); HEMATOCRIT 27.9 % (32.4-45.2); HEMOGLOBIN 8.4 GM/dL (10.7-15.3); LYMPH % 2.1 % (8-40); MCH 26.7 pg (25.7-33.7); MCHC 30.2 g/dl (32.0-36.0); MEAN CELL VOLUME 88.3 fl (80-96); MEAN PLT VOLUME 10.9 fl (7.5-11.1); MONO % 1.1 % (3.8-10.2); NEUT % 96.5 % (42.8-82.8); PLATELET COUNT 237 K/MM3 (134-434); RBC 3.16 M/mm3 (3.60-5.2); RDW 19.1 % (11.6-15.6); WHITE BLOOD COUNT 24.4 K/mm3 (4.0-10.0)
[2018-10-28 10:17] LABS: INR 1.18 (0.83-1.09)
[2018-10-28 12:34] LABS: ACANTHOCYTES 2+; ANISOCYTOSIS 2+; MACROCYTOSIS 0; OVALOCYTE 1+; PLATELET ESTIMATE NORMAL; TEAR DROP CELLS 1+
[2018-10-28] MEDS ORDERED: SODIUM CHLORIDE 1,000 ML IV STA (13:28)
[2018-10-28] MEDS ORDERED: PIPERACILLIN/TAZOB 2.25 GM 2.25 GM in DEXTROSE 5%-WATER - 50 ML IVPB ONE (16:14)
[2018-10-28] MEDS ORDERED: VANCOMYCIN 1 GRAM (PRE-DOCKED) 1,000 MG/250 ML BAG IVPB ONE (16:15)
[2018-10-28] MEDS ORDERED: VANCOMYCIN 500 MG in DEXTROSE 5%-WATER - 100 ML IVPB ONE (16:18)
--- NOTE | 2018-10-28 16:26 | PN ---
Teaching Attending Note Name of Resident: Micheal Macias ATTENDING PHYSICIAN STATEMENT I saw and evaluated the patient. I reviewed the resident's note and discussed the case with the resident. I agree with the resident's findings and plan as documented. SUBJECTIVE: CC: presented for liver bx , found to have fever HPI: 68 y/o lady with complicated PMH including a pancreatic mass, with liver masses, acute cholecystitis with complication of rupture and cholecystostomy tube insertion /removal, COPd, severe TR, esophageal stricture s/p dilation, complete heart block s/p PPM, recent admission to [facility] fot UTI and bacteremia, and was found to have portal vein thrombosis . she was sent home on 5 days of keflex after her dc ( klebsiella bacteremia ). 2 days ago, she started feeling chills, but no fever. denies urinary sx, no diarrhea, has chronic abd pain, but no new change. denies cough or sputum production , denies any CP or SOB. of note last admission , she was found to have portal vein thrombosis , and R greater saphenous thrombosis. she was not placed on AC due to thrombocytopenia. HIT Abs were neg. she was also found to have b/l small pleural effusions on chest CT and a small pericadiac effusion labs available : CBC only . reviewed. No imaging available OBJECTIVE: BP 74/50. Sat O2 95% RA NAD, awake , alert , and oriented , pleasant and cooperative HEENT: MMM, no facial droop. EOMI. Lungs: CTAB CV: RRR, 3/6 SM at LLSB and LUSB. Abd: soft, ND, TTP in RUSB and epigastric area. no rebound tenderness, mid line surgical scar with hernia . NL BS Ext: + pitting edema on both legs and 3+ pitting edema on feet. No erythema . has tenderness when skin is palpated. Neuro: EOMI, round equal pupils, reactive to light, tongue at mid line, sensation to light touch nl. uvula at mid line. strength 5/5 in upper and lower extremities proximally and distally. sensation to light touch nL all over. reflexes 2+ knee jerk and 2+ biceps ASSESSMENT AND PLAN: 68 y/o lady with complicated PMH including a pancreatic mass, with liver masses , acute cholecystitis with complication of rupture and cholecystostomy tube insertion /removal, has biliary stent, COPd, severe TR, esophageal stricture s/ p dilation, complete heart block s/p PPM, recent admission to [facility] fot UTI and bacteremia, and was found to have portal vein thrombosis . 1- Fever, leukocytosis, hypotension : suspicion forsepsis. need to r/o bacteremia . source could be biliary source. - check cxray , UA , and CT of abd/pelvis ( r/o collection ) - check lactic acid - send blood cx - give a dose of vanco and zosyn pending cultures - bolus of 1 L and start maintenance of 100cc/hr - Consult ID 2- Recent diagnosis of portal vein thrombosis ( US on 10/02/18) and great saphenous vein thrombosis (10/18/18) - was taken off AC due to thrombocytopenia. HIT abx came back neg - start lovenox 1mg/kg/bid - hem onc consult 3- H/o pancreatic mass, elevated Ca19-9,and liver masses: likely pancreatic ca with mets. reported h/o pancreatic bx with neg results ( per family). - need liver bx when stable - will arrange for transfer to [facility] ( Dr. Urrutia ) when stable 4-Esophageal stricture: s/p dilation . stent placement was postponed due to her illness. - cont with chopped diet 5- order labs . CMP. lactic, electrolytes.
--- NOTE | 2018-10-28 16:43 | HP ---
CHIEF COMPLAINT: some PCP: Jc Jacobs, GI Dr. Jack Colindres, Cardio Dr. Frederick Malloy, Onc Dr. Devang Urrutia HISTORY OF PRESENT ILLNESS: Pt is a 68 y/o F with medical history significant for COPD, esoph stricture, likely panc CA with mets to liver, hx cholecystostomy tube, hx gall bladder rupture s/p laparotomy (no cholecystectomy), known cholelithiasis. Pt presented to Amb surg today for a liver biopsy, but was found to be septic. Procedure was cancelled and medicine was called. She also was recently treated at [place] for E.coli UTI and Klebsiella bacteremia. Pt states she feels well. ROS significant for difficulty swallowing and decreased PO intake and associated weight loss of about 10-15 lbs since March when esophageal stricture was discovered. She also admits to "stretching" sensation in her belly since her laparotomy last Oct. She complains of swelling in both feet for the last few months. ER course was notable for: (1) (2) (3) Recent Travel: denies PAST MEDICAL HISTORY: as above PAST SURGICAL HISTORY: cholecystostomy, laparotomy for gall bladder rupture Social History: Smoking: quit 2016 Alcohol: denies Drugs: denies Family History: denies Allergies acetaminophen [From Tylenol] Allergy (Intermediate, Verified 10/08/18 12:32) Rash latex Allergy (Intermediate, Verified 10/08/18 12:32) Rash HOME MEDICATIONS: Home Medications Medication Instructions Recorded Lactobacillus Combination No.4 1 each PO BID 05/22/18 [Probiotic] Ranitidine HCl [Zantac] 150 mg PO BID 07/01/18 Ibuprofen [Advil -] 200 mg PO PRN 10/25/18 REVIEW OF SYSTEMS CONSTITUTIONAL: chills Absent: fever, , diaphoresis, generalized weakness, malaise, loss of appetite, weight change HEENT: difficulty swallowing, Absent: rhinorrhea, nasal congestion, throat pain, throat swelling, mouth swelling, ear pain, eye pain, visual changes CARDIOVASCULAR: Absent: chest pain, syncope, palpitations, irregular heart rate, lightheadedness , peripheral edema RESPIRATORY: Absent: cough, shortness of breath, dyspnea with exertion, orthopnea, wheezing, stridor, hemoptysis GASTROINTESTINAL:abdominal pain (stretching) Absent: , abdominal distension, nausea, vomiting, diarrhea, constipation, melena , hematochezia GENITOURINARY: Absent: dysuria, frequency, urgency, hesitancy, hematuria, flank pain, genital pain MUSCULOSKELETAL: b/l foot swelling Absent: myalgia, arthralgia, joint swelling, back pain, neck pain SKIN: Absent: rash, itching, pallor HEMATOLOGIC/IMMUNOLOGIC: Absent: easy bleeding, easy bruising, lymphadenopathy, frequent infections ENDOCRINE: Absent: unexplained weight gain, unexplained weight loss, heat intolerance, cold intolerance NEUROLOGIC: Absent: headache, focal weakness or paresthesias, dizziness, unsteady gait, seizure, mental status changes, bladder or bowel incontinence PSYCHIATRIC: Absent: anxiety, depression, suicidal or homicidal ideation, hallucinations. PHYSICAL EXAMINATION Vital Signs - 24 hr 10/28/18 10/28/18 10:43 10:45 Temperature 100.9 F H Pulse Rate 90 Respiratory 18 Rate Blood Pressure 78/42 L O2 Sat by Pulse 95 Oximetry (%) GEN: Comfortable, frail HEENT: NCAT Neck: prominent jugular vein, supple Cardio: rrr, normal s1s2, no murmurs appreciated Pulm: cta b/l Abd: b/l UQ tenderness on palpation. Less apparent with slow deep palpation. Ramsay's negative. Infrapubic surgical scar with hernia Ext: b/l 2+ pedal edema, 2+ pulses Neuro: sensation, strength intact throughout. CN 2-12 intact Laboratory Results - last 24 hr 10/28/18 10/28/18 09:57 09:57 WBC 24.4 H RBC 3.16 L Hgb 8.4 L Hct 27.9 L MCV 88.3 MCH 26.7 MCHC 30.2 L RDW 19.1 H Plt Count 237 MPV 10.9 Absolute Neuts (auto) 23.5 H Neutrophils % 96.5 H Neutrophils % (Manual) 79.8 Band Neutrophils % 18.2 Lymphocytes % 2.1 L Lymphocytes % (Manual) 1.0 L Monocytes % 1.1 L Monocytes % (Manual) 0 L Eosinophils % 0.0 Eosinophils % (Manual) 0.0 Basophils % 0.3 Basophils % (Manual) 0.0 Myelocytes % (Man) 0 Promyelocytes % (Man) 0 Blast Cells % (Manual) 0 Nucleated RBC % 0 Metamyelocytes 1 Hypochromia 1+ Platelet Estimate Normal Platelet Comment Present Polychromasia 0 Poikilocytosis 0 Anisocytosis 2+ Microcytosis 1+ Macrocytosis 0 Tear Drop Cells 1+ Ovalocytes 1+ [place] Cells 1+ Acanthocytes (Spur) 2+ PT with INR 14.00 H INR 1.18 H ASSESSMENT/PLAN: Pt is a 68 y/o F with medical history significant for COPD, esoph stricture, likely panc CA with mets to liver, hx cholecystostomy tube, hx gall bladder rupture s/p laparotomy (no cholecystectomy), known cholelithiasis who presented to amb surg for a biopsy and was found to be septic. #Sepsis -fluid responsive -pt recently septic with kelbsiella bacteremia -? GI/biliary source. Pt had imaging showing hepatic duct dilation, portal thrombosis -BCx, LA, CBC, BMP, UA -Vanc/Zosyn, -ID consult. Spoke with Dr. Elliott #Portal thrombosis -pt was being treated at [facility] last month. treatment was stopped due to thrombocytopenia and ? JOSE (Ab screen ultimately neg.) -GI consult: ? consider restarting AC for portal thrombus. Call placed to GI ( Dr. Guzmán service) #Panc CA w/ Mets to Liver -as of yet, uncertain Dx. Pt had neg biopsy of pancreatic mass. No biopsy of liver mass yet. Masses visualized on imaging -Spoke with Dr. Devang Urrutia ([phone]) who left decision to transfer to [facility] up to medicine team at [facility], but would be on as a treasury consultant there, should the patient be transferred -GI consulted #Esoph stricture -evaluated previously by her GI (Dr. Jack Colindres) -soft diet #COPD -stable -not on O2 #FEN -NS -lytes pending -soft diet #PPx -Hep SubQ #Dispo -Med Surg. Considering transfer to [facility] once stable Micheal Macias MD PGY-2 IM Visit type - Emergency Visit Emergency Visit: No - New Patient This patient is new to me today: Yes Date on this admission: 10/28/18 - Critical Care Critical Care patient: No
--- NOTE | 2018-10-28 17:14 | PN ---
Progress Note (short form) - Note Progress Note: ID Cosult dictated Sepsis/ septic shock, likely biliary tract source Metastatic ca Hx biliary obstruction s/p stent Recent gram negative bacteremia/ sepsis Pending sepsis w/u empiric zosyn/ flagyl GI evaluation
[2018-10-28] MEDS ORDERED: VANCOMYCIN 1,000 MG VIAL (RESTRICTED TO ID ONLY) ONE (17:18)
[2018-10-28 17:49] LABS: ALBUMIN 1.2 g/dl (3.4-5.0); ALK PHOS 128 U/L (45-117); ANION GAP 10 MMOL/L (8-16); BILIRUBIN,TOTAL 1.3 mg/dL (0.2-1); BLOOD UREA NITROGEN 9 mg/dL (7-18); CHLORIDE 102 mmol/L (98-107); CO2 22 mmol/L (21-32); CREATININE 0.2 mg/dL (0.55-1.3); GLUCOSE,RANDOM 85 mg/dL (74-106); MAGNESIUM 1.7 mg/dL (1.8-2.4); POTASSIUM 3.8 mmol/L (3.5-5.1); SGOT/AST 14 U/L (15-37); SGPT/ALT < 6 U/L (13-61); SODIUM 135 mmol/L (136-145); TOT PROT 4.6 g/dl (6.4-8.2)
[2018-10-28] MEDS: PIPERACILLIN/TAZOB 3.375 GM 3.375 GM in DEXTROSE 5%-WATER - 50 ML IVPB SCH (17:52)
[2018-10-28] MEDS ORDERED: HEPARIN NA (PORCINE) 5,000 UNITS/ML 1ML VIAL SQ SCH (18:00)
[2018-10-28 18:08] LABS: CALCIUM 6.6 mg/dL (8.5-10.1)
--- NOTE | 2018-10-28 18:16 | CONS ---
DATE OF CONSULTATION: DATE OF DICTATION: 10/28/2018 INFECTIOUS DISEASE CONSULTATION HISTORY OF PRESENT ILLNESS: A 68-year-old female with known metastatic carcinoma evaluated for septic shock. Patient was recently admitted to [facility] between October 08 and October 19 after presenting with generalized weakness and chills. At that time she was found to have positive blood cultures for klebsiella and positive urine culture for E. coli and enterococcus. She received a course of IV antibiotic therapy and was discharged home to complete a course of oral therapy. The patient was home for approximately one week when she began to develop recurrent chills and weakness. She was scheduled for a liver biopsy today. Upon her arrival in the ambulatory surgical unit, patient was noted to be febrile to 100.9 and hypotensive with a blood pressure of 78/42. Cultures were obtained. She was empirically treated with Zosyn and vancomycin. The patient has no focal complaint. She complains of generalized weakness and intermittent chills. She has no complaints of abdominal pain, vomiting or diarrhea. No urinary tract complaints. The patient has a known history of metastatic carcinoma. The primary has not yet been identified. She was scheduled for a liver biopsy. Her clinical course over the past several months has been complicated by biliary obstruction requiring a biliary stent placement, perforated gallbladder, portal vein thrombosis on anticoagulation. She also has had a history of esophageal stricture which required intermittent dilatation. PAST SURGICAL HISTORY: Status post permanent pacemaker. ALLERGIES: LATEX and TYLENOL. SOCIAL HISTORY: Lives at home with family members, former smoker. SYSTEMS REVIEW: Neurologic: No loss of consciousness, seizure activity, focal weakness. Cardiac: Negative for chest pain or palpitations. Respiratory: Negative for cough or sputum production. Gastrointestinal: As per HPI. Genitourinary: Negative for urinary tract infection. LABORATORY DATA: White count 24.4, hematocrit 27.9, platelet count 237. Creatinine 0.6. Total bilirubin 0.7, alkaline phosphatase 104, AST 13. PHYSICAL EXAMINATION: General: On exam, she is chronically ill appearing, weak, pale. Vital signs: Temperature 100.9, blood pressure 78/42, pulse 90 regular, respirations 18 per minute. HEENT: Sclerae anicteric. Oropharynx: Dry mucous membranes. Cardiovascular: Heart sounds S1, S2. Lungs: Clear. Abdomen: Soft. There is epigastric tenderness to deep palpation and fullness. Extremities: Negative for edema. IMPRESSION: 1. Septic shock, probable biliary source. 2. Metastatic carcinoma. 3. Marked leukocytosis. 4. Status post recent gram negative sepsis. Await cultures. Empiric antibiotic coverage with Zosyn and Flagyl. GI evaluation. IV fluids. Hemodynamic support. Prognosis is guarded. Case discussed with patient's daughter present at the time of the examination. Thank you for the kind referral. 1 MARÍA SPRING M.D. [id number]
--- NOTE | 2018-10-28 18:32 | PN ---
Progress Note (short form) - Note Progress Note: surgery 68f with metastatic ca(pancreatic ca per ED attending), biliary stricture, hx perforated gb, with recent admission for bacteremia and sepsis, presents with sepsis again. Request to evaluate for surgical exploration if surgical source of sepsis found. No imaging done at this time. ED reports no abd pain or tenderness In setting of metastatic pancreatic ca, biliary stricture, perforated gb, pt should be transferred to a tertiary care center if she needs surgery. Pt currently stable for transfer per ed and awaiting CT abd. will be available but no surgical management at this [facility] should be done.
[2018-10-28] MEDS: SODIUM CHLORIDE 1,000 ML IV SCH (18:35)
--- NOTE | 2018-10-28 19:40 | CON.GI ---
Consult Consult Specialty:: GI - History of Present Illness History of Present Illness: 68 y/o F with PMH of metastatic liver cancer of unknown primary was suppose to have ultrasound guised liver biopsy today. She had RUQ pain, fever, WBC 24, 000. Last 12/2017 she underwent Percutaneous cholecystostomy tube insertion. SHe also had metallic biliary stent insertion of unknown etiology and dilated pancreatic duct. - Past Medical History Cardio/Vascular: Yes: Other (heart block, PM) Pulmonary: Yes: COPD Gastrointestinal: Yes: Cancer Hepatobiliary: Yes: Other (larry stent, gb perf) - Alcohol/Substance Use Hx Alcohol Use: Yes (social) - Smoking History Smoking history: Former smoker Have you smoked in the past 12 months: No Aproximately how many cigarettes per day: 0 If you are a former smoker, when did you quit?: 2017 Home Medications - Allergies Allergies/Adverse Reactions: Allergies Allergy/AdvReac Type Severity Reaction Status Date / Time acetaminophen [From Tylenol] Allergy Intermediate Rash Verified 10/28/18 18:17 latex Allergy Intermediate Rash Verified 10/28/18 18:17 - Home Medications Home Medications: Ambulatory Orders Lactobacillus Combination No.4 [Probiotic] 1 each PO BID 05/22/18 Ranitidine HCl [Zantac] 150 mg PO BID 07/01/18 Ibuprofen [Advil -] 200 mg PO PRN 10/25/18 Physical Exam-GI Vital Signs: Vital Signs Temperature 98.0 F 10/28/18 15:30 Pulse Rate 78 10/28/18 15:30 Respiratory Rate 18 10/28/18 15:30 Blood Pressure 84/50 L 10/28/18 15:30 O2 Sat by Pulse Oximetry (%) 95 10/28/18 10:45 Labs: CBC, BMP 10/28/18 09:57 10/28/18 16:30 INR, PTT INR 1.18 (0.83-1.09) H 10/28/18 09:57
[2018-10-28] MEDS: ENOXAPARIN NA (PORCINE) 40 MG/0.4 ML DISP.SYRIN SQ SCH (21:55)
[2018-10-29] MEDS ORDERED: PIPERACILLIN/TAZOBACTAM 3.375 GM VIAL IVPB ONE ×4 (02:02→17:48)
[2018-10-29] MEDS: PIPERACILLIN/TAZOB 3.375 GM 3.375 GM in DEXTROSE 5%-WATER - 50 ML IVPB SCH ×3 (02:03→18:12)
[2018-10-29] MEDS ORDERED: DEXTROSE 5%-WATER - 50 ML IVPB ONE ×2 (02:03→17:48)
[2018-10-29 08:26] LABS: ALBUMIN 1.2 g/dl (3.4-5.0); ALK PHOS 121 U/L (45-117); ANION GAP 11 MMOL/L (8-16); BILIRUBIN,TOTAL 1.1 mg/dL (0.2-1); BLOOD UREA NITROGEN 9 mg/dL (7-18); CHLORIDE 104 mmol/L (98-107); CO2 21 mmol/L (21-32); CREATININE 0.3 mg/dL (0.55-1.3); GLUCOSE,RANDOM 66 mg/dL (74-106); MAGNESIUM 1.8 mg/dL (1.8-2.4); PHOSPHOROUS 2.8 mg/dL (2.5-4.9); POTASSIUM 3.6 mmol/L (3.5-5.1); SGOT/AST 15 U/L (15-37); SGPT/ALT < 6 U/L (13-61); SODIUM 136 mmol/L (136-145); TOT PROT 4.4 g/dl (6.4-8.2)
[2018-10-29 08:37] LABS: CALCIUM 6.6 mg/dL (8.5-10.1)
[2018-10-29 08:40] LABS: BASO % 0.3 % (0-2.0); EOS % 0.1 % (0-4.5); HEMATOCRIT 19.7 % (32.4-45.2); LYMPH % 13.6 % (8-40); MCH 26.6 pg (25.7-33.7); MCHC 30.3 g/dl (32.0-36.0); MEAN PLT VOLUME 10.9 fl (7.5-11.1); MONO % 4.8 % (3.8-10.2); NEUT % 81.2 % (42.8-82.8); PLATELET COUNT 101 K/MM3 (134-434); RBC 2.24 M/mm3 (3.60-5.2); RDW 19.6 % (11.6-15.6); WHITE BLOOD COUNT 11.6 K/mm3 (4.0-10.0)
[2018-10-29] MEDS ORDERED: ENOXAPARIN NA (PORCINE) 40 MG/0.4 ML DISP.SYRIN SQ SCH ×2 (10:00)
[2018-10-29] MEDS: ENOXAPARIN NA (PORCINE) 40 MG/0.4 ML DISP.SYRIN SQ SCH (10:50)
--- NOTE | 2018-10-29 11:33 | PN ---
Progress Note (short form) - Note Progress Note: The patients nurse spoke to Dr Canales last night . The patient had a complicated hospital stay in another institution. Dr Canales was requesting that patient be transferred for further evaluation and management.
[2018-10-29 12:27] LABS: HEMATOCRIT 20.1 % (32.4-45.2); MCH 28.4 pg (25.7-33.7); MCHC 33.3 g/dl (32.0-36.0); MEAN CELL VOLUME 85.2 fl (80-96); MEAN PLT VOLUME 10.9 fl (7.5-11.1); PLATELET COUNT 166 K/MM3 (134-434); RBC 2.36 M/mm3 (3.60-5.2); RDW 19.3 % (11.6-15.6); WHITE BLOOD COUNT 13.4 K/mm3 (4.0-10.0)
--- NOTE | 2018-10-29 12:28 | PN ---
Progress Note, Physician History of Present Illness: Awake, alert No c/o pain Temps down Afebrile WBC improved BC prelim no growth - Current Medication List Current Medications: Active Medications Sodium Chloride (Normal Saline -) 1,000 mls @ 100 mls/hr IV ASDIR HAILEE Last Admin: 10/28/18 18:35 Dose: 100 mls/hr Piperacillin Sod/Tazobactam (Sod 3.375 gm/ Dextrose) 50 mls @ 100 mls/hr IVPB Q8H-IV HAILEE; Protocol Last Admin: 10/29/18 10:51 Dose: 100 mls/hr Metronidazole (Flagyl 500mg Premixed Ivpb -) 500 mg in 100 mls @ 100 mls/hr IVPB Q8H-IV HAILEE Last Admin: 10/29/18 10:50 Dose: 100 mls/hr - Objective Vital Signs: Vital Signs Temperature 97.9 F 10/29/18 08:19 Pulse Rate 76 10/29/18 08:19 Respiratory Rate 18 10/29/18 08:19 Blood Pressure 108/72 10/29/18 08:19 O2 Sat by Pulse Oximetry (%) 96 10/29/18 08:15 Constitutional: Yes: Cachectic Cardiovascular: Yes: Regular Rate and Rhythm, S1, S2 Respiratory: Yes: CTA Bilaterally Gastrointestinal: Yes: Normal Bowel Sounds, Soft, Tenderness, Other (+ epigastric tenderness) Edema: Yes Labs: CBC, BMP 10/29/18 06:55 INR, PTT INR 1.18 (0.83-1.09) H 10/28/18 09:57 Assessment/Plan Metastatic ca Fever/ leukocytosis R/O biliary sepsis Await c/s Continue empiric zosyn/ flagyl
[2018-10-29 12:33] LABS: HEMOGLOBIN 6.7 GM/dL (10.7-15.3)
--- NOTE | 2018-10-29 13:00 | PN ---
Teaching Attending Note Name of Resident: Caryn Eucdea ATTENDING PHYSICIAN STATEMENT I saw and evaluated the patient. I reviewed the resident's note and discussed the case with the resident. I agree with the resident's findings and plan as documented. SUBJECTIVE: No fever ro chills. had BM this am with brown color per Aid . feels a little better today. pink urine last night. has abd pain. OBJECTIVE: NAD pleasant and cooperative HEENT: MMM Lungs: CTAB CV: RRR, 3/6 SM at LLSB and LUSB. Abd: soft, ND, TTP in RUSB and epigastric area. no rebound tenderness, mid line surgical scar with hernia . NL BS Ext: 2+ pitting edema on both legs and 3+ pitting edema on feet. No erythema . ASSESSMENT AND PLAN: 68 y/o lady with complicated PMH including a pancreatic mass, with liver masses , acute cholecystitis with complication of rupture and cholecystostomy tube insertion /removal, has biliary stent, COPd, severe TR, esophageal stricture s/ p dilation, complete heart block s/p PPM, recent admission to [place] fot UTI and bacteremia, and was found to have portal vein thrombosis . 1- Sepsis: likely form biliary source . improved - CT reviewed. no collection . - check US to evaluate biliary tree - cont zosyn and flagyl - cont IVF . decrease rate as her BP has imporved to her base line 90s - follow cx 2- Acute on chronic anemia : not clear of reason. was started on lovenox last night. no clear source of bleeding can be identified now . - audrey perform rectal exam. OB - transfuse RBCs - monitor for hematuria or GI bleed . - GI on case 3- Recent diagnosis of portal vein thrombosis ( US on 10/02/18) and great saphenous vein thrombosis (10/18/18) was not on ac due to thrombocytopenia. started on lovenox last night as plt count recovered . - dc lovenox in setting of acute drop in HB 4- H/o pancreatic mass, elevated Ca19-9,and liver masses: likely pancreatic ca with mets. reported h/o pancreatic bx with neg results ( per family). - need liver bx when stable - will arrange for transfer to [facility] when stable 4-Esophageal stricture: s/p dilation . stent placement was postponed due to her illness. - cont with chopped diet dispo : case was d/w Dr. Urrutia yesterday. will contact transfer center and arrange for transfer to [facility] .
--- NOTE | 2018-10-29 13:14 | PN ---
Progress Note (short form) - Note Progress Note: surgery pt seen and examined. on regular diet. complains of luq pain. ct shows no acute inflammatory process. Plans for transfer in progress. Previous laparotomy at [facility]. abd- soft, nt, reducible incisional hernia Plan- luq pain ? splenic capsule stretch from portal thrombosis. No indication for surgical exploration. Pt would best be managed at a tertiary care center.
[2018-10-29] MEDS: SODIUM CHLORIDE 1,000 ML IV SCH (13:39)
--- NOTE | 2018-10-29 13:59 | CONS ---
DATE OF CONSULTATION: 10/29/2018 REASON FOR CONSULTATION: Abdominal pain, sepsis. Please evaluate for exploratory surgery. REQUESTING PHYSICIAN: bJ Guzmán MD BRIEF HISTORY: This is a 68-year-old female with multiple medical problems including metastatic cancer to her liver of unknown primary. She has had a pancreatic biopsy which was non-diagnostic and has plans for a liver biopsy. She presented to the interventional radiology department for this liver biopsy as an outpatient and was noted to have hypotension and signs of sepsis and was sent to the emergency room where GI requested surgical evaluation. She has history of a biliary stent, metal in nature, for obstruction of her common bile duct. She also has history of a laparotomy done at [facility] for a perforated gallbladder which was drained but not removed. She has history of a cholecystostomy tube. She has portal vein thrombosis with splenomegaly. She also has COPD as well as an esophageal stricture and previous sepsis from urinary tract infection. PAST MEDICAL HISTORY: As stated in the HPI. PAST SURGICAL HISTORY: Significant for a laparotomy and cholecystostomy tube placement. SOCIAL HISTORY: Significant for quitting tobacco. FAMILY HISTORY: Noncontributory. ALLERGIES: She has allergies to TYLENOL and LATEX. REVIEW OF SYSTEMS: General: Denies fatigue or malaise. Cardiac: Denies chest pain or palpitations. Respiratory: Denies shortness of breath or wheeze. Gastrointestinal: As stated in the HPI. Denies nausea. Denies vomiting. She is currently eating on a regular diet, not complaining of pain. Genitourinary: Denies dysuria. Musculoskeletal: Denies joint pain. Psychiatric: Denies anxiety, depression, or hearing voices. PHYSICAL EXAMINATION: General: This is a cachectic, 68-year-old female in no distress. Vital Signs: She is afebrile. Her blood pressure is 108/72. It was 78/42 at admission. She is not tachycardic. HEENT: Her head is normocephalic. Her sclerae are anicteric. Neck: Supple. Chest: Clear. Abdomen: Soft. She has minimal left upper quadrant tenderness. She has a midline incision below her umbilicus which has a hernia which is reducible. The hernia is broad based. Extremities: Trace edema. LABORATORY DATA: On review of her laboratory, white blood cell count is 13,000, which is down from 24,000; her hemoglobin is low at 6.7; her platelet count is 166. Her INR is elevated at 1.18. Her chemistries show an elevated bilirubin of 1.1, an elevated alkaline phosphatase of 121. Her albumin is low at 1.2. On review of her imaging, she has a CAT scan of her abdomen and pelvis which shows officially no obvious abscess. In further detail in the midline report, she does have gallstones without acute cholecystitis. Her adrenal gland is thickened. The appendix has no evidence of appendicitis or diverticulitis. The main portal vein has marked focal narrowing with the junction of the superior mesenteric vein and splenic vein. There is lymphadenopathy. There is intrahepatic and extrahepatic biliary duct dilatation. The biliary stent is noticed. The pancreatic duct is dilated. Multiple hepatic lesions have grown since previous CAT scan. No pneumoperitoneum is noted. No abscess is noted. No free air is noted. ASSESSMENT: A 68-year-old female with a complex surgical history with metastatic cancer that is increasing in size with strictures of her common bile duct, her pancreatic duct, and clot within her portal vein. Patient is septic, hypotensive, and has a CAT scan that shows no obvious source of the sepsis. At this point, the patient has no indication for surgical exploration. She is currently on a regular diet and pain free. I suspect her current left upper quadrant pain could be from stretch on the splenic capsule from portal vein thrombosis. In either event, plans are being made for patient to be transferred to a tertiary care center which would make sense to us since she had previous surgery there and a difficult hospital course. Patient is currently nontoxic on a regular diet. I will be available as needed. DO HUNTER ROCK/[id number]
--- NOTE | 2018-10-29 17:16 | PN ---
Physical Exam: SUBJECTIVE: Patient is a 68 y/o female with a history of significant for COPD, esophogeal stricture, likely pancreatic cancer with mets to the lives, hx cholecystecomy tube, hx gallbladder rupture, who s here for possible sepsis 2/2 to stent. Patient has diffuse abdominal pain, denies any fever. Patient to have one unit of blood. OBJECTIVE: Vital Signs Temperature 98 F 10/29/18 14:05 Pulse Rate 76 10/29/18 14:05 Respiratory Rate 18 10/29/18 14:05 Blood Pressure 95/61 10/29/18 14:05 O2 Sat by Pulse Oximetry (%) 96 10/29/18 08:15 GEN: Comfortable, alert and oriented x 3 HEENT: NCAT Cardio: regular rate and rhytm, no rubs or murmurs Pulm: Lungs clear to auscultation Abd: b/l UQ tenderness on palpation. Less apparent with slow deep palpation. Ramsay's negative. Infrapubic surgical scar with hernia Ext: b/l 2+ pedal edema, 2+ pulses Neuro: sensation, strength intact throughout. CN 2-12 intact, gait observed CBC, BMP 10/29/18 12:00 10/29/18 06:55 Active Medications Sodium Chloride (Normal Saline -) 1,000 mls @ 100 mls/hr IV ASDIR HAILEE Last Admin: 10/29/18 13:39 Dose: Not Given Piperacillin Sod/Tazobactam (Sod 3.375 gm/ Dextrose) 50 mls @ 100 mls/hr IVPB Q8H-IV HAILEE; Protocol Last Admin: 10/29/18 10:51 Dose: 100 mls/hr Metronidazole (Flagyl 500mg Premixed Ivpb -) 500 mg in 100 mls @ 100 mls/hr IVPB Q8H-IV HAILEE Last Admin: 10/29/18 10:50 Dose: 100 mls/hr ASSESSMENT/PLAN: Patient is a 68 y/o female with a history of significant for COPD, esophogeal stricture, likely pancreatic cancer with mets to the lives, hx cholecystecomy tube, hx gallbladder rupture, who is here for possible sepsis 2/2 to stent. #sepsis 2/2 to cholecystitis vs infected stent - Patient wishes to be transferred to [facility], but not currently accepted - afebrile - Continue Zosyn and Metronidazole - ID consult pending - CT: no abscess, cholelithiasis without acute choleangitis, b/l adrenal gland thickening, multiple hepatic lesions - bcx pending, and lactic acid - f/u abdominal ultra sound #anemia - Hgb 6, repeat 6.7 given 1 unit - f/u CBC @ 630 #portal thrombosis - no treatment due to thrombocytopenia - f/u GI recs #Pancreatic cancer with mets to liver - unable to have biopsy done here - pt has new oncologist Dr. Urrutia at [facility] #COPD - stable #ppx - hep subq Dispo: [facility] medical team will no accept patient for transfer, attempted to reach pancreatobilliary team to accept patient per reccomendations of [facility] medical team. Have not had call back yet. Patient has accepting physician at [facility] but patient and family do not wish to go there. Per patients son if [facility] team still does not accept patient they will go to [facility] - accepting physician Dr. Nelda Bal ) - per surgery here patient should be at tertiary center for possible infected stent Visit type - Emergency Visit Emergency Visit: No - New Patient This patient is new to me today: No - Critical Care Critical Care patient: No
[2018-10-29 19:16] VITALS: BP 96/62
[2018-10-29 19:47] LABS: URINE APPEARANCE CLOUDY; URINE BILIRUBIN NEGATIVE (<2.0 mg/dL); URINE COLOR AMBER; URINE GLUCOSE (UA) NEGATIVE (NEGATIVE); URINE KETONE 1+ (NEGATIVE); URINE LEUK ESTERASE TRACE (NEGATIVE); URINE NITRITE POSITIVE (NEGATIVE); URINE PROTEIN 1+ (NEGATIVE); URINE UROBILINOGEN 4.0 E.U/dl mg/dL (0.2-1.0)
[2018-10-29 19:53] LABS: CALCIUM OXALATE CRYSTALS RARE /hpf (NONE SEEN); EPI CELLS MANY /HPF (FEW); URINE MUCUS RARE; YEAST RARE
[2018-10-29 20:31] VITALS: PULSE 68; TEMP 98
--- NOTE | 2018-10-30 08:15 | DS ---
Physical Exam: SUBJECTIVE: [facility] oncology accepted patent for transfer, she received one unit of blood and was transferred. OBJECTIVE: Vital Signs Temperature 98.0 F 10/29/18 20:29 Pulse Rate 68 10/29/18 20:29 Respiratory Rate 18 10/29/18 20:29 Blood Pressure 96/62 10/29/18 20:29 O2 Sat by Pulse Oximetry (%) 96 10/29/18 20:29 PHYSICAL EXAM GEN: Comfortable, alert and oriented x 3 HEENT: NCAT Cardio: regular rate and rhytm, no rubs or murmurs Pulm: Lungs clear to auscultation Abd: b/l UQ tenderness on palpation. Less apparent with slow deep palpation. Ramsay's negative. Infrapubic surgical scar with hernia Ext: b/l 2+ pedal edema, 2+ pulses Neuro: sensation, strength intact throughout. CN 2-12 intact, gait observed LABS CBC, BMP 10/29/18 12:00 10/29/18 06:55 HOSPITAL COURSE: Date of Admission:10/28/18 Patient admitted to the hospital for likely sepsis. Patient has extensive history of biliary surgery and biliary stent. Septic source not identified, thought to be biliary. Patient has likely pancreatic cancer with mets to the liver. Patients oncologist is Dr. Urrutia at [facility] and would like patient transferred. Patient given IV Zosyn and Metronidazole for the sepsis, blood cultures drawn and pending. Patient's hemoglobin 6, repeat 6.7, transfused one unit of blood. CT: no abscess, cholelithiasis without acute cholecystitis, b/l adrenal gland thickening, focal narrowing junction of main portal vein, superior mesenteric vein and splenic vein 2/2 contiguous soft tissue nodularity likely lymphadenopathy, multiple hepatic lesions Patient transferred to [facility]. Date of Discharge: 10/30/18 Minutes to complete discharge: 38 Discharge Summary Reason For Visit: LIVER MASS Condition: Stable - Instructions Disposition: TRANSFER ACUTE CARE/OTHER HOSP - Home Medications Comprehensive Discharge Medication List: Ambulatory Orders Lactobacillus Combination No.4 [Probiotic] 1 each PO BID 05/22/18 Ranitidine HCl [Zantac] 150 mg PO BID 07/01/18 Ibuprofen [Advil -] 200 mg PO PRN 10/25/18 This patient is new to me today: No Emergency Visit: Yes ED Registration Date: 12/03/18 Care time: The patient presented to the Emergency Department on the above date and was hospitalized for further evaluation of their emergent condition. Critical Care patient: No - Discharge Referral Referred to [facility] No
== END 2018-10-29 22:50 | disposition short-term general hospital (02) | DRG 871 ==
LOC: JRADIR 09:34 → JSAMEDAYSX 16:10 → J4W 18:05
PROVIDERS: ADMIT Internal Medicine; ATTEND Internal Medicine
PROC: 30233N1 Transfusion of Nonautologous Red Blood Cells into Peripheral Vein, Percutaneous Approach (ICD-10-PCS; principal; 2018-10-29)
DX: A41.9 Sepsis, unspecified organism (principal); I81 Portal vein thrombosis; C25.9 Malignant neoplasm of pancreas, unspecified; C78.7 Secondary malignant neoplasm of liver and intrahepatic bile duct; R64 Cachexia; Z68.1 Body mass index [BMI] 19.9 or less, adult; K81.9 Cholecystitis, unspecified; D64.9 Anemia, unspecified; D69.6 Thrombocytopenia, unspecified; D72.829 Elevated white blood cell count, unspecified
CPT/HCPCS: 36415; 36430; 71045-TC-FY; 74177-TC; 80053; 81003; 81015; 82272; 83605; 83735; 84100; 85025; 85027; 85610; 86850; 86900; 86901; 86922; 87040; J7030; P9058